=== PATIENT | female | born 1975 | race Caucasian/White ===

== ENCOUNTER → 2019-06-13 09:32 | Outpatient (CLI) | payer OTHER, SELFPAY ==
[2019-06-13 10:37] LABS: Absolute Lymphocyte Count 2.39 X10^3/uL (0.83-4.51); Absolute Neutrophil Count 4.4 X10^3/uL (2.0-7.7); Basophil# 0.04 X10^3/uL; Basophil% 0.5 % (0-1); Eosinophil# 0.08 X10^3/uL; Eosinophils% 1.1 % (0-5); Hematocrit 35.9 % (37-47); Hemoglobin 10.5 g/dL (12.0-15.0); Lymphocyte # 2.39 X10^3/ul (4.0); Lymphocyte % 32.7 % (19-41); Mean Corp Hgb Conc 29.2 g/dL (32-36); Mean Corpuscular Hgb 19.7 pg (27.0-32.0); Mean Corpuscular Volume 67.2 fL (81-99); Mean Platelet Vol. 11.2 fl (6.2-12.0); Monocyte# 0.37 X10^3/uL; Monocyte% 5.1 % (0-10); NRBC Flagged by Analyzer 0 % (0-5); Neutrophil # 4.42 X10^3/uL (2.7-7.7); Neutrophil % 60.3 % (47-70); Platelet Count 299 K/mm3 (150-450); RBC Distribution Width CV 18.8 % (11.6-14.6); RBC Distribution Width SD 43.6 fl (35.1-43.9); Red Blood Count 5.34 M/mm3 (4.2-5.4); White Blood Count 7.3 K/mm3 (4.4-11.0)
[2019-06-13 10:54] LABS: ALB/GLOB Ratio 0.9 RATIO (0.9-2.4); AST(SGOT) 15 U/L (15-37); Alanine Aminotransfer ALT/SGPT 24 U/L (13-56); Albumin, Serum 3.5 g/dL (3.2-5.0); Alkaline Phosphatase 82 U/L (45-117); Anion Gap 4 (5-15); BUN 11 mg/dL (7-18); BUN/Creat Ratio 16.3 RATIO (10-20); Calcium,Total 8.3 mg/dL (8.5-10.1); Chloride 109 mmol/L (98-107); Cholesterol 191 mg/dL (200); Creatinine, Serum 0.68 mg/dL (0.55-1.02); EST Glomerular Filtration Rate 101 mL/min (>60); Est Glom Filt Rate - Afr Amer 122 mL/min (>60); Globulin 3.9 g/dL (2.2-4.2); Glucose 90 mg/dL (74-106); High Density Lipoprotein 33 mg/dL; Protein, Total 7.4 g/dL (6.4-8.2); Sodium Level 139 mmol/L (136-145); Triglycerides 66 mg/dL; Very Low Density Lipoprotein 13 mg/dL (5-40)
[2019-06-13 10:59] LABS: Hemoglobin A1c 5.6 % (4.2-6.3)
== END ==
PROVIDERS: PCP Family Medicine; Referring Provider Family Medicine; Visit Provider Family Medicine
DX: Z00.00 Encounter for general adult medical examination without abnormal findings (principal); E66.9 Obesity, unspecified
CPT/HCPCS: 36415; 80053; 80061; 83036; 85025

== ENCOUNTER → 2019-09-03 13:19 | Outpatient (CLI) | payer OTHER, SELFPAY ==
[2019-09-08 04:38] LABS: HPV APTIMA, High Risk Negative (Negative)
[2019-09-11 00:31] LABS: HPV Reflexed? YES, CHARGE PATIENT
== END ==
PROVIDERS: PCP Family Medicine; Referring Provider Obstetrics & Gynecology; Visit Provider Obstetrics & Gynecology
DX: Z12.4 Encounter for screening for malignant neoplasm of cervix (principal)
CPT/HCPCS: 87624; 88175; G0145

== ENCOUNTER → 2019-09-22 17:00 | Outpatient (CLI) | payer OTHER, SELFPAY ==
--- NOTE | 2019-09-22 17:00 | BI_ITS ---
MAMMOGRAPHY - BILATERAL SCREENING REASON FOR EXAM: Female, 44 years old. Routine annual screening examination. PERTINENT HISTORY: Non-contributory. History of prior bilateral breast reduction surgery. TECHNIQUE: Digital bilateral breast bettie (3D mammographic acquisition) in the CC and MLO projections. 2-D mediolateral oblique (MLO) and craniocaudad (CC) views of both breasts were obtained. CAD: Full Field Digital Mammography with Computer Added Detection was performed. COMPARISON: None. Baseline examination. FINDINGS: Breast Composition: The breasts are heterogeneously dense, which may obscure small masses. There are no dominant masses or suspicious calcifications. Benign-appearing bilateral axillary lymph nodes. No other significant abnormalities are identified. BI/SCREEN MAMM (CAD) W/BETTIE BILAT IMPRESSION: Negative screening mammogram. Yearly followup mammogram recommended. (A) ASSESSMENT CATEGORY: BIRADS Category 2: Benign. A letter regarding these results will be sent to the patient by the facility within 30 days. Approximately 10% of breast cancers are not detected by mammography. A normal mammogram should not delay biopsy of a clinically suspicious abnormality. [id number] Electronically Signed: Peewee Sibley, at 9:31 EDT , Service support ,
== END ==
PROVIDERS: PCP Family Medicine; Referring Provider Obstetrics & Gynecology; Visit Provider Obstetrics & Gynecology
DX: Z12.31 Encounter for screening mammogram for malignant neoplasm of breast (principal)
CPT/HCPCS: 77063; 77067

== ENCOUNTER → 2020-05-16 16:56 | Outpatient (CLI) | payer OTHER, SELFPAY ==
[2020-05-18 15:35] LABS: Cancer Antigen 125 18.6 U/mL (0.0-38.1)
== END ==
PROVIDERS: PCP Family Medicine; Visit Provider Obstetrics & Gynecology
DX: N83.209 Unspecified ovarian cyst, unspecified side (principal)
CPT/HCPCS: 36415; 86304

== ENCOUNTER 2020-06-06 06:46 | Day surgery (SDC) | payer OTHER, SELFPAY ==
[2020-06-02 16:51] LABS: Hematocrit 44.5 % (37-47); Hemoglobin 14.7 g/dL (12.0-15.0); Mean Corpuscular Hgb 27.9 pg (27.0-32.0); Mean Corpuscular Volume 84.4 fL (81-99); Mean Platelet Vol. 11.4 fl (6.2-12.0); Platelet Count 262 K/mm3 (150-450); RBC Distribution Width CV 13.3 % (11.6-14.6); RBC Distribution Width SD 41.1 fl (35.1-43.9); Red Blood Count 5.27 M/mm3 (4.2-5.4); White Blood Count 10.2 K/mm3 (4.4-11.0)
[2020-06-02 17:02] LABS: Prothrombin Time (Protime)PT. 12.5 SECONDS (11.7-14.9)
[2020-06-02 17:31] LABS: Internal QC Validated? YES +Cl - CLEAR BKGD; Pregnancy, Serum, hCG Quali. NEGATIVE Negative
[2020-06-02 17:34] LABS: Creatinine, Serum 0.63 mg/dL (0.55-1.02); EST Glomerular Filtration Rate 109 mL/min (>60); Est Glom Filt Rate - Afr Amer 132 mL/min (>60)
--- NOTE | 2020-06-05 19:44 | HP.PCM_ITS ---
History and Physical Date of Admission: 06/06/20 Surgical History and Physical Freda Urias, a 45 year old female 0 0 0 0 0, presents for RAVH/BSO on May at 7:30. -- Bilateral Ovarian Calcifications; Menorrhagia -- Flow is heavy, has varied between heavy and spotting. U/S to check for appropriateness of abblation showed calcifications in both ovaries. Given this, she desires we proceed with the above surgery. MEDICATIONS HISTORY: Patient is also takin. ibuprofen 200 mg capsule, 2 tabs po PRN ALLERGIES: NKDA Infections - Bronchitis, Chicken pox and Shingles Illnesses - PCOS Accidents - None Hospitalizations - see surgery Kidney Stone 08/2017; Review of Systems: GENERAL - Denies fever, or chills SKIN - Denies skin changes EYES - Denies visual changes EARS - Denies difficulty hearing NOSE - Denies nasal congestion or bleeding MOUTH - Denies sore throat or difficulty swallowing NECK - Denies pain or swelling RESPIRATORY - Denies shortness of breath or wheezing CARDIOVASCULAR - Denies palpitations or chest pain GASTROINTESTINAL - Denies nausea, vomiting, diarrhea, constipation GENITOURINARY - Denies dysuria, frequency of urination, incontinence of urine MUSCULOSKELETAL - Denies joint or muscle pain NEUROLOGICAL - Denies localized numbness or weakness PSYCHIATRIC - Denies depression or anxiety ENDOCRINE - Denies heat or cold intolerance, weight loss or gain HEMATO-IMMUNOLOGIC - Denies excesive bleeding with cuts SOCIAL HISTORY: Alcohol Use - socially Smoking - used to smoke but quit Diet - no special diet Lifestyle - Exercise - minimal Seat Belt Use - always Employer - [employer] 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 Paternal history of Hypertension. MENSTRUAL HISTORY: LMP Known?- DefiniteAmount/Duration - 7 days, Regularity - Regular, Frequency - variable days, LMP - 05/07/20, Age Onset Menarche - 16 PAST PREGNANCIES: Total Pregnancies - 0; Full Term Pregnancies - 0; Premature - 0; Abortions, Induced - 0; Abortions, Spontaneous - 0; Ectopics - 0; Multiple Births - 0; Living Children - 0 SURGICAL HISTORY: 1. 02/19/1989 Rt knee surgery 2. Conization x 2 1992, 2009 3. T and A, in 1982 4. Breast reduction 01/2012 5. Lithotripsy Stone Right Kidney [facility] 08/2017 PHYSICAL EXAM BP- 152/98 Sitting, Right arm, large cuff Weight- 273.73365 lbs Height- 67.75 inch BMI:41.90 CONSTITUTIONAL - NAD, well nourished, and well developed SKIN - No rash, lesions, or ulcers HEENT - Normocephalic, PERRLA, EOMI NECK - No nodes, no nuchal rigidity and thyroid normal size and texture LYMPH NODES - Palpation of lymph nodes in neck and groins within normal limits LUNGS - CTA x2 without wheezes, crackles or rales CARDIAC - Regular rate and rhythm without rubs, murmurs, or gallops BREAST - No dominant masses, no tenderness, no axillary adenopathy, no nipple discharge, no skin changes ABDOMEN - Without hepatosplenomegaly, distention, masses, rebound, or guarding; normal bowel sounds; no hernias EXTREMITIES - No edema or calf tenderness NEUROLOGICAL - Cranial nerves II-XII grossly intact PSYCHIATRIC - A and O to time, place, person, mood and affect External Genitial Vagina - non-tender without lesions Urethra/Urethral Meatus - non-tender Bladder - non-tender Vagina - vaginal akins are pink and moist without loss of rugae and no evidence of atropy Cervix - without cervical motion tenderness and has normal size and features without evident lesions Uterus - 5-6 cm in size, mobile and nontender Adnexa - clear without massess or tenderness ASSESSMENT/PLAN: 1. Abnormal Findings On Diagnostic Imaging Of Other Specified Body Structures, Other Noninflammatory Disorders Of Ovary, Fallopian Tube And Broad Ligament and Premenopause Menorrhagia Reviewed pelvic u/s results and uncertain etiology of bilateral ovarian calcifications. CA-125 normal. Possible causes are benign or malignant ovaries, dermoid cyst, or normal ovarian tissue. Given this will not proceed with ablation but rather proceed with RAVH/BSO. Discussed RBAs of procedure including needing to use HRT for an indefinite time. All questions answered.
[2020-06-06] VITALS (12 sets, daily range): BP systolic 140–166; BP diastolic 75–101; PULSE 78–109; RESP 16–18; TEMP 36.3–36.9; O2SAT 92–97; BMI 39.9
[2020-06-06 07:30] LABS: Internal QC Validated? YES +Cl - CLEAR BKGD; Pregnancy, Urine Negative Negative
[2020-06-06] MEDS: Lactated Ringers 1,000 ML 100 ML IV ×2 (07:33→09:30)
[2020-06-06] MEDS: Cefotetan 2 GM in 0.9% NS 100 ML IV (08:06)
--- NOTE | 2020-06-06 08:15 | HYST_PTH ---
PATIENT: AVTAR GRAY LOC: [facility] [place] U#:[id number] AGE/SX: 45/F ROOM: RE06/06/[address]: Dr. Rodger Coy MD : [id number] BED: DIS: 06/07/2020 SPEC #: [id number] RECD: 06/06/20 11:58 STATUS: SHYLA REJoselyn #: [id number] JEFF: 06/06/20 08:[address]: Rodger Coy DEPT: SURGICAL PATHOLOGY RECD BY: Kristin Theodore ENTERED: 06/06/20 13:48 SP TYPE: HYSTERECT OTHR DR: Dr. Alfonso Ventura, DO Tissues: Uterus, NOS Procedures: Surgery Specimen Level V HEADER OPERATION: Robotic assisted vaginal hysterectomy, bilateral salpingo-oophorectomy PRE-OP DIAGNOSIS: Menorrhagia, ovarian calcifications TISSUE SUBMITTED: Uterus, cervix, bilateral fallopian tubes, bilateral ovaries MICROSCOPIC DIAGNOSIS Uterus, hysterectomy: Cervix - squamous metaplasia, nabothian cysts and mild chronic inflammation. Endometrium - secretory endometrium. Myometrium - adenomyosis. Right ovary - cystadenofibroma. Left ovary - cystadenofibroma. Corpus luteal cyst. Left fallopian tube - no pathologic change. AM:angelita 06/07/2020 MICROSCOPIC DESCRIPTION Slides are reviewed. GROSS DESCRIPTION Received in fixative is one container labeled with the patient's name and designated uterus. The specimen consists of a uterus with attached cervix, detached right ovary with adherent indistinct possible fallopian tube and attached left ovary and fallopian tube. The uterus with cervix measures 10 x 6 x 5.7 cm and weighs 172 gm. The endocervical canal measures 3.5 cm in length and is grossly unremarkable. The elongated endometrial cavity measures 5 x 2.5 cm. The velvety, light lopes endometrium measures up to 0.4 cm in thickness. The myometrium measures 3 cm in average thickness and is free of mass lesions. The cystic pink-lopes right ovary measures 4 x 3.5 x 2 cm. Serial sections reveal multiple cysts containing clear fluid and ranging in size from 0.1 to 1 cm. No distinct right fallopian tube is identified. The left fallopian tube measures 8.5 cm in length and 0.5 cm in average diameter. The fimbrial end of the fallopian tube is focally adherent to the smooth, glistening cystic ovary. This ovary measures 4.8 x 3.5 x 3 cm. Serial sections of the left ovary likewise reveal multiple cysts containing clear fluid and the cysts range in size from 0.1 to 1.5 cm in greatest dimension. Cso sections are submitted in ten cassettes as follows: 1 - anterior cervix, 2 - posterior cervix, 3 & 4 - anterior uterine wall, 5 & 6 - posterior uterine wall, 7 - right ovary and paraovarian tissue, 8 & 9 - left ovary, 10 - left ovarian cyst and left fallopian tube. / AM:angelita 06/06/20 TC:1 CPT: 88778
--- NOTE | 2020-06-06 08:17 | OP.PCM_ITS ---
Report of Operation Date of Procedure: 06/06/20 Pre-Operative Diagnosis: Menorrhagia, Ovarian Calcifications Post-Operative Diagnosis: Menorrhagia, Ovarian Calcifications, Dense Adhesions Surgery/Procedure Performed:: Robotic Assisted Vaginal Hysterectomy and Bilateral Salpingo-Oophorectomy, Lysis of Adhesions Description of Surgical Findings:: 12 cm uterus with normal-appearing left fallopian tube and an obliterated right fallopian tube. Possible hydrosalpinx at the right cornua. Dense adhesions between the ovaries and pelvic sidewalls into the pelvis and onto the posterior uterus. Dense adhesions of the rectosigmoid to the posterior cervix. Ovaries were slightly enlarged but appeared essentially normal. Possible endometriosis present. mirror inspector: Esmer De La Garza Type of Anesthesia:: General - Endotracheal Anesthesiologist: Kayla Black Specimen's removed: Uterus and bilateral fallopian tubes and ovaries Drains: Resendez to straight drain Estimated Blood Loss (mL): 200 cc Fluids Replaced: Crystalloid Description of Procedure: Surgeon: Rodger Coy MD, FACOG Indication: This is a 45 year old patient who has been having problems with menorrhagia. On recent ultrasound she was also noted to have bilateral calcified ovaries. CA-125 was normal. The patient has been counseled regarding the risks, benefits and alternatives of this procedure including the possibility of bleeding, infection, and injury to surrounding structures such as bowel bladder and all questions were answered. She understands that if BSO is done that she will need to be on HRT for an indefinite period of time. Procedure: Pt taken to the operating room where, after induction of general anesthesia, the patient was prepped and draped in the usual sterile fashion and placed on a non-slip Huggy-u-vac device. Trendelenburg test was satisfactory. Bladder was drained of urine with a Resendez catheter which was left in place. Anterior cervix grasped and cervix was dilated to about 3-4 mm. Uterus sounded to 11 cms. 0-Vicryl suture was placed at the 3:00 and 9:00 position of the cervix. A small Advincula Executive Search Consultant Uterine Manipulator was then placed in the uterus and attention was turned to the laparoscopic portion of the procedure. Ropivocaine 0.5% was injected approximately 2-3 cm superior to the umbilicus and an 8 mm robotic camera port was introduced directly with intraperitoneal placement confirmed with CO2 insufflation. 8 mm robotic side ports were introduced under direct visualization approximately 11 cm lateral and 2 cm inferior to the umbilical port. A 5 mm left upper quadrant port was introduced and airseal insufflation with CO2 was started. The above findings were noted. Robot was docked without difficulty and attention turned to the robotic portion of the procedure. Approximately 30 cc of Ropivicaine was used. Bilateral infundibulopelvic ligaments were ligated with 35 aldana bipolar coagulation to the level of the round ligament after taking down dense adhesions between the ovaries and pelvic sidewalls. This was done with both blunt and sharp dissection as well as monopolar or bipolar cautery were safe. Bowel was also bluntly and sharply dissected from the posterior aspect of the cervix. A dhesiolysis added approximately 45 minutes to the case. The posterior aspect of the cervix was identified and then opened for about 1 cm using 25 watt monopolar cautery. Bladder flap was opened and divided to the level of the round ligaments using monopolar cautery. Progressive bites were then ligated on each side of the cervix with 35 aldana bipolar cautery to the uterine arteries. The anterior vaginal mucosa was entered and cervix circumscribed with monopolar cautery. Uterus and attached tubes and ovaries were removed through the vagina. Vaginal cuff was closed first with 0-Vicryl Erni stitches placed at each angle followed by closure of the mid-cuff with 0- Monocryl V-lock suture in two layers. Pelvis was copiously irrigated with saline and the right ureter was noted to peristalse. Abner was placed across the pedicles to help with postoperative hemostasis due to oozing from the adhesiolysis. Robot was undocked and trocars were removed with as much gas as possible. Incisions were closed with 4-0 Monocryl subcuticular sutures and incisions covered with steri-strips. The patient tolerated the procedure well and was taken to the recovery room in satisfactory condition. Sponge, instruments and needle counts were all correct. There were no apparent complications of the surgery. Cefotan 2 gms IV was given prior to the procedure. Estimated Blood Loss: 200 cc Specimen to Pathology: Uterus and bilateral fallopian tubes and ovaries Grafts/Implants Used: None - Complications None - Admit VTE Documentation VTE Present on Admission: Yes VTE Mechan Device Prophylaxis: SCD's VTE Pharm Prophylaxis ordered?: Yes
--- NOTE | 2020-06-06 08:23 | DCINST_ITS ---
Discharge Diet: No Restrictions Discharge Activity: Return to Normal Activity, May Not Drive - while taking narcotic pain medications., May Shower, May Take a Tub Bath May resume sexual activity in: 6-8 weeks Call your doctor if your incision/area has: Continuous Slow Oozing, Sudden Inc reased Bleeding, Increased Pain/ Swelling, Increased Redness, Foul Smelling Discharge Call your doctor if you observe: Fever of 101 or Higher, Inability to urinate, Inability to have a bowel movement, Using more than one pad per hour Allergies/Adverse Reactions: Allergies No Known Allergies Allergy (Verified 06/06/20 07:02) Medications to take at Discharge Ferrous Sulfate 325 mg PO DAILY 05/30/20 Ibuprofen [Advil] 200 mg PO Q6H PRN PRN 05/30/20 Docusate Sodium [Colace] 100 mg PO BID PRN PRN #60 cap 06/06/20 Estradiol 2 mg PO DAILY #100 tab 06/06/20 Oxycodone [Oxyir] 5 mg PO Q6H PRN PRN 7 Days #10 tablet 06/06/20 The following prescriptions were given: Docusate Sodium [Colace] 100 mg PO BID PRN PRN #60 cap PRN Reason: Constipation Transmission Status: Pending to [facility] Estradiol 2 mg PO DAILY #100 tab Transmission Status: Pending to [facility] Oxycodone [Oxyir] 5 mg PO Q6H PRN PRN 7 Days #10 tablet PRN Reason: Pain Score 6-10 Transmission Status: Sent to [facility] Primary Care Physician: Alfonso Ventura DO [Primary Care Provider] - Test Results: Test results from this visit will be discussed in further detail at your follow- up appointment, if applicable. Please Follow Up With: Rodger Coy MD When: 2 to 3 weeks
[2020-06-06] MEDS: Lubricating Jelly 60 GM Tube 30 GM TOPICAL (08:35)
[2020-06-06] MEDS: Ropivacaine 0.5% 30 ML Vial (08:45)
[2020-06-06] MEDS: Lactated Ringers 1,000 ML 150 ML IV ×2 (14:38→20:39)
[2020-06-06] MEDS: Docusate Sodium 100 MG Capsule PO ×2 (14:40→20:43)
[2020-06-06] MEDS: Acetaminophen 500 MG Tablet 1000 MG PO ×2 (14:40→18:46)
[2020-06-06] MEDS: Ketorolac 30 MG/ML Syringe IV ×2 (14:40→18:46)
[2020-06-06] MEDS: 0.9% Saline Lock 10 ML Syringe IV ×2 (14:46→20:49)
[2020-06-06] MEDS: Enoxaparin 40 MG/0.4 ML Syringe SC (18:47)
[2020-06-07] MEDS: Ketorolac 30 MG/ML Syringe IV ×2 (00:47→05:57)
[2020-06-07] MEDS: Acetaminophen 500 MG Tablet 1000 MG PO ×2 (00:47→05:56)
[2020-06-07 00:51] VITALS: BP 163/98; PULSE 105; RESP 18; TEMP 36.7; O2SAT 95
[2020-06-07] MEDS: Lactated Ringers 1,000 ML 150 ML IV (02:37)
[2020-06-07 05:53] VITALS: BP 166/102; PULSE 102; RESP 18; TEMP 36.8; O2SAT 94
[2020-06-07 06:40] LABS: Hemoglobin 13.8 g/dL (12.0-15.0); Mean Corp Hgb Conc 33.7 g/dL (32-36); Mean Corpuscular Hgb 28.5 pg (27.0-32.0); Mean Corpuscular Volume 84.5 fL (81-99); Platelet Count 249 K/mm3 (150-450); RBC Distribution Width SD 39.8 fl (35.1-43.9); Red Blood Count 4.85 M/mm3 (4.2-5.4); White Blood Count 14.2 K/mm3 (4.4-11.0)
[2020-06-07 07:07] LABS: Creatinine, Serum 0.67 mg/dL (0.55-1.02); EST Glomerular Filtration Rate 102 mL/min (>60); Est Glom Filt Rate - Afr Amer 123 mL/min (>60); Estimated Creatinine Clearance 111.98 ml/min
--- NOTE | 2020-06-07 08:22 | PN.OBGYN_ITS ---
Subjective: Patient without complaints. Tolerating diet well. Positive flatus. Reports minimal vaginal bleeding. Objective: Wounds are clean, dry, intact. Good urine output. Hemoglobin and creatinine okay. - Physical Exam Vitals/I&O's: Vital Signs Temp Pulse Resp BP Pulse Ox 98.2 F 102 H 18 166/102 H 94 06/07/20 05:53 06/07/20 05:53 06/07/20 05:53 06/07/20 05:53 06/07/20 05:53 Oxygen Delivery Method Room Air Weight: 270 lb 4.587 oz Body Mass Index (BMI) 39.9 Intake and Output for Last 24 Hours 06/05/20 06/06/20 06/07/20 23:59 23:59 23:59 Intake Total 3002.5 / 3602.5 1495 / 1495 Output Total 400 / 1950 3400 / 3400 Balance 2602.5 / 1652.5 -1905 / -1905 Laboratory Results 06/07/20 06:14: Creatinine 0.67, Estim Creat Clear Calc 111.98, Est GFR (MDRD) Af Amer 123, Est GFR (MDRD) Non-Af 102 06/07/20 06:14: WBC 14.2 H, RBC 4.85, Hgb 13.8, Hct 41.0, MCV 84.5, MCH 28.5, MCHC 33.7, RDW Std Deviation 39.8, RDW Coeff of Ning 13.0, Plt Count 249, MPV 11.0 Current Medications Acetaminophen (Acetaminophen 500 Mg Tablet) 1,000 mg PO Q6 [facility] Last Admin: 06/07/20 05:56 Dose: 1,000 mg Documented by: Docusate Sodium (Docusate Sodium 100 Mg Capsule) 100 mg PO BID [facility] Last Admin: 06/06/20 20:43 Dose: 100 mg Documented by: Lactated Ringer's () 1,000 mls @ 150 mls/hr IV .Q6H40M [facility] Stop: 06/07/20 13:19 Last Admin: 06/07/20 02:37 Dose: 150 mls/hr Documented by: Ketorolac Tromethamine (Ketorolac 30 Mg/Ml Syringe) 30 mg IV Q6 [facility] Stop: 06/07/20 18:01 Last Admin: 06/07/20 05:57 Dose: 30 mg Documented by: Magnesium Chloride (Magnesium Chloride 64 Mg Delay Rel.Tablet) 128 mg PO DAILY PRN PRN PRN Reason: Constipation Nutritional Formula (Lactose Free) (Ensure Enlive 120 Ml Liquid) 120 ml PO TIDCM ALVIN Last Admin: 06/06/20 18:45 Dose: 120 ml Documented by: Ondansetron HCl (Ondansetron Odt 4 Mg Tablet) 4 mg PO Q6H PRN PRN PRN Reason: NAUSEA Sodium Chloride (0.9% Saline Lock 10 Ml Syringe) 10 - 40 ml IV UD PRN PRN Reason: SALINE FLUSH Last Admin: 06/06/20 20:49 Dose: 10 ml Documented by: Medical Necessity - Tobacco Use Smoking Status: Former smoker Tobacco Use: Non-smoker Assessment/Plan Doing well postoperative day #1 status post robotic assisted vaginal hysterectomy and bilateral salpingo-oophorectomy. Will discharge to home with routine instructions.
[2020-06-07] MEDS: Docusate Sodium 100 MG Capsule PO (09:08)
[2020-06-07 09:12] VITALS: BP 144/98; PULSE 96; RESP 18; TEMP 36.6; O2SAT 96
[2020-06-07 10:16] VITALS: O2SAT 96
--- NOTE | 2020-06-07 11:07 | PHA.DC.MC ---
Pharmacy Service has performed discharge medication reconciliation and counseling for this patient. 1. DOCUSATE 100MG PO BID PRN CONSTIPATION 2. ESTRADIOL 2MG PO DAILY 3. OXYCODONE 5MG PO Q6H PRN PAIN 6-10 The patient's discharge medication list was reviewed for discrepancies and discrepancies were resolved. Home Medications Ferrous Sulfate 325 mg PO DAILY 05/30/20 Ibuprofen [Advil] 200 mg PO Q6H PRN PRN 05/30/20 Docusate Sodium [Colace] 100 mg PO BID PRN PRN #60 cap 06/06/20 Estradiol 2 mg PO DAILY #100 tab 06/06/20 Oxycodone [Oxyir] 5 mg PO Q6H PRN PRN 7 Days #10 tab 06/06/20 The patient was counseled on the following discharge medications and changes in medications for homegoing were reviewed. The Reason for Use, instructions for use, and potential side effects were reviewed for all new medications. The patient's questions regarding all of their medications were answered. The patient was able to verbally demonstrate an understanding of their discharge medications. Patient counseled by student services advisor, Princess.
[2020-06-07 13:28] VITALS: BP 154/110; PULSE 101; RESP 18; TEMP 36.5; O2SAT 96
--- NOTE | 2020-06-07 13:29 | NURSING ---
PT STATES BP HAS BEEN HIGH - HAS F/U APPOINTMENT W/PCP TO EVALUATE SAME.
== END 2020-06-07 14:02 | disposition home or self-care (01) ==
LOC: SDC 06:46 → AC 06:47 → MS3 06-07 12:15
PROVIDERS: Anesthesiology; PCP Family Medicine; Referring Provider Obstetrics & Gynecology; Visit Provider Obstetrics & Gynecology
PROC: 0UT94ZZ Resection of Uterus, Percutaneous Endoscopic Approach (ICD-10-PCS; CPT 58552; principal; 2020-06-06 07:55)
DX: D27.1 Benign neoplasm of left ovary (principal); D27.0 Benign neoplasm of right ovary; N92.0 Excessive and frequent menstruation with regular cycle; K66.0 Peritoneal adhesions (postprocedural) (postinfection); Z79.1 Long term (current) use of non-steroidal anti-inflammatories (NSAID); Z79.899 Other long term (current) drug therapy; Z82.49 Family history of ischemic heart disease and other diseases of the circulatory system; Z83.3 Family history of diabetes mellitus; Z87.442 Personal history of urinary calculi; Z87.891 Personal history of nicotine dependence; E28.2 Polycystic ovarian syndrome; N80.0 Endometriosis of uterus; N88.8 Other specified noninflammatory disorders of cervix uteri; N83.12 Corpus luteum cyst of left ovary
CPT/HCPCS: 00840; 58552; S2900; 36415; 81025; 82565; 84703; 85027; 85610; 85730; 86850; 86900; 86901; 87426; 88307; 94762; C9803; J7120; A4216; J0330; J2405

== ENCOUNTER → 2020-07-04 12:48 | Outpatient (CLI) | payer OTHER, SELFPAY ==
[2020-06-06 13:19] VITALS: BMI 39.9
--- NOTE | 2020-07-04 12:49 | ECHOD_ITS ---
Reason For Study: New onset loud systolic murmur Procedure This was a 2D Doppler, Color Flow transthoracic echocardiogram. Contrast injection was performed. Exam performed in department. Left Ventricle Normal LV size. Moderate concentric left ventricular hypertrophy. Left ventricular systolic function is normal. The estimated ejection fraction is 55 %. No regional wall motion abnormalities noted. Right Ventricle Normal RV size. Normal systolic function. Atria The left atrium is moderately enlarged. Normal right atrium. Mitral Valve Posterior leaflet mitral valve prolapse. Moderate (2+) eccentric mitral valve insufficiency. Tricuspid Valve Normal tricuspid valve. Mild (1+) tricuspid valve insufficiency. Pulmonary artery systolic pressure is 30 mmHg. Aortic Valve Normal aortic valve. Trisinus/trileaflet aortic valve. Pulmonic Valve Normal pulmonic valve. Mild (1+) pulmonic valve insufficiency. Great Vessels Normal aortic root. The pulmonary artery is normal size. Normal inferior vena cava. Pericardium/Pleural No pericardial effusion. Medication Diluted definity 4ml given slow IV push to enhance endocardial definition. MMode/2D Measurements & Calculations LVIDd: 5.7 cm IVSd: 1.5 cm Ao root diam: 3.5 cm LVIDs: 3.2 cm LVPWd: 1.5 cm RVDd: 3.7 cm FS: 44.0 % LAV(MOD-bp): 117.1 ml LVAd ap4: 42.7 cm2 SV(MOD-sp4): 90.4 ml LAV(MOD-bp) Indexed: 50.4 ml/m2 EDV(MOD-sp4): 165.1 ml LAV(MOD-sp2): 112.2 ml EDV(sp4-el): 169.2 ml LAV(MOD-sp4): 114.8 ml LVAs ap4: 26.4 cm2 ESV(MOD-sp4): 74.7 ml ESV(sp4-el): 76.6 ml EF(MOD-sp4): 54.7 % EF(sp4-el): 54.7 % SV(sp4-el): 92.6 ml LA A4 area: 30.1 cm2 LA dimension(2D): 4.6 cm RA A4 area: 13.9 cm2 Doppler Measurements & Calculations MV E max mark: 105.7 cm/sec Lat Peak E' Mark: 15.9 cm/sec Med Peak E' Mark: 6.8 cm/sec MV A max mark: 78.1 cm/sec E/E' lat: 6.7 E/E' med: 15.4 MV E/A: 1.4 Ao V2 max: 159.6 cm/sec LV V1 max: 108.3 cm/sec PA V2 max: 96.6 cm/sec Ao max P.2 mmHg LV V1 max P.7 mmHg Ao V2 mean: 108.7 cm/sec Ao mean P.3 mmHg Ao V2 VTI: 26.4 cm TR max mark: 254.7 cm/sec TR max P.9 mmHg Interpretation Summary Normal LV size. Left ventricular systolic function is normal. The estimated ejection fraction is 55 %. Posterior leaflet mitral valve prolapse. Moderate (2+) eccentric mitral valve insufficiency. Moderate concentric left ventricular hypertrophy. The left atrium is moderately enlarged. Ordering Physician: Alfonso Ventura Referring Physician: Alfonso Ventura Performed By: Jennifer Simons, CRYSTAL, RVT
== END ==
PROVIDERS: PCP Family Medicine; Referring Provider Family Medicine; Visit Provider Family Medicine
DX: R01.1 Cardiac murmur, unspecified (principal)
CPT/HCPCS: 93306; Q9957; A4216; C8929

== ENCOUNTER 2020-07-15 11:42 | Outpatient (RCR) | payer OTHER, SELFPAY ==
[2020-06-06 13:19] VITALS: BMI 39.9
== END 2020-09-27 23:59 ==
LOC: IMMUN 11:42
PROVIDERS: PCP Family Medicine; Visit Provider Family Medicine
DX: Z23 Encounter for immunization (principal)
CPT/HCPCS: 0001A; 0002A; 91300

== ENCOUNTER 2020-12-05 02:09 | Emergency (ER) | payer OTHER, SELFPAY ==
[2020-06-06 13:19] VITALS: BMI 39.9
[2020-12-05 02:11] VITALS: BP 160/90; PULSE 122; RESP 18; TEMP 37.3; O2SAT 95; BMI 41.1
[2020-12-05 03:17] VITALS: BP 160/90; PULSE 122; RESP 18; TEMP 37.3; O2SAT 95
--- NOTE | 2020-12-05 03:18 | EX.ED.DYSGE1 ---
HPI History of Present Illness Chief Complaint: Fever Narrative Narrative: 45-year-old female presenting with fever with T-max of 102.8 from home. She states has had both of her Pfizer vaccines. Last dose was in July. She had no history of Covid prior to this. She denies chest pain, palpitations, shortness of breath. She states she may have a mild cough which is chronic. Denies urinary symptoms, vaginal symptoms, GI symptoms. PFSH PFS Medical History Hypertension Kidney calculi Mitral valve disorder Home Medications estradiol 2 mg PO DAILY #100 tab 06/06/20 [Rx Last Taken Unknown] lisinopril-hydrochlorothiazide 1 tab PO DAILY 12/05/20 [History Last Taken Unknown] Allergy/AdvReac Type Severity Reaction Status Date / Time No Known Allergies Allergy Verified 06/06/20 07:02 Surgical History H/O: hysterectomy Social History Smoking Status: Former smoker ROS ROS ED Constitutional Constitutional ED: Reports chills and fever(s) Eyes Eyes: Denies blurry vision or diplopia ENT ENT ED: Denies rhinorrhea or sore throat Cardiovascular Cardiovascular: Denies chest pain or palpitations Respiratory/Chest Respiratory/Chest: Denies cough or dyspnea Gastrointestinal Gastrointestinal: Denies abdominal pain, constipation, diarrhea, nausea or vomiting Genitourinary Genitourinary ED: Denies dysuria or hematuria Musculoskeletal Musculoskeletal: Reports myalgias; Denies arthralgias or neck pain Neurologic Neurologic: Reports headache(s); Denies paresthesias or weakness EXAM Physical Exam Const Vital Signs: 12/05/20 02:11 12/05/20 03:17 Temperature 99.1 F 99.1 F Temperature Source Oral Oral Pulse Rate 122 H 122 H Respiratory Rate 18 18 Blood Pressure 160/90 H 160/90 H Blood Pressure Mean 113 113 Pulse Ox 95 95 Oxygen Delivery Method Room Air Room Air Positive well nourished General Appearance ED: NAD HEENT Reports moist mucous membranes Negative for trauma Eyes PERRL and EOMs intact bilaterally Chest Wall inspection of chest normal and palpation of chest normal Resp normal respiratory effort and clear to auscultation bilaterally Cardio regular rhythm Rate: tachycardic Extremity normal to inspection General Extremety ED: Negative for tenderness Neuro oriented x3, CN's II-XII intact bilaterally and no sensory deficits noted Sensorium / Orientation: alert Motor Exam: strength 5/5 throughout Psych mental status grossly normal Skin no rashes or lesions noted and no wounds MDM MDM MDM Narrative Medical decision making narrative: Patient presented with a fever from home. She states this is been going on for about 24 hours. She does admit to a mild headache but denies any neck pain. Patient denies significant change in her cough which is chronic. She denies GI complaints, complaints, rashes. She states currently she feels much improved and now that her fever has broken. I did offer the patient blood work, imaging, Covid testing however she does decline this and states she just wants to be tested for COVID-19. We did also discuss testing for RSV or influenza and she is not interested in this either. Patient will be tested for Covid and discharged home. If she has any new or worsening symptoms she is to return to the ER. Patient stable for discharge at this time. Impression: #1 febrile illness Discharge Plan Triage Chief Complaint: Fever ED Provider: Salvador Ríos Dx/Rx/DC Orders Instructions: ED Fever Control (Adult) Prescriptions: No Action estradiol 2 MG tablet 2 mg PO DAILY Qty: 100 RF: 4 lisinopril-hydrochlorothiazide 10-12.5 mg Tablet 1 tab PO DAILY RF: 0 Primary Care Provider: Alfonso Ventura Referrals: Alfonso Ventura DO [Primary Care Provider] - Disposition Disposition: Home, Self Care
== END 2020-12-05 03:50 | disposition home or self-care (01) ==
LOC: ED 03:50
PROVIDERS: Emergency Provider Student in an Organized Health Care Education/Training Program; PCP Family Medicine
DX: R50.9 Fever, unspecified (principal); I10 Essential (primary) hypertension; Z87.891 Personal history of nicotine dependence; Z87.442 Personal history of urinary calculi
CPT/HCPCS: 87426; 99282

== ENCOUNTER 2020-12-07 21:32 | Emergency (ER) | payer OTHER, SELFPAY ==
[2020-12-07 21:34] VITALS: BP 78/57; PULSE 136; RESP 37; TEMP 36.2; O2SAT 95; BMI 41.1
[2020-12-07 21:38] VITALS: BP 78/57; PULSE 136; RESP 37; TEMP 36.2; O2SAT 95
[2020-12-07 21:44] VITALS: BP 98/60; PULSE 134; RESP 28; O2SAT 99
--- NOTE | 2020-12-07 21:49 | EKG12_ITS ---
Test Reason : CP/COVID Blood Pressure : / mmHG Vent. Rate : 140 BPM Atrial Rate : 140 BPM P-R Int : 140 ms QRS Dur : 106 ms QT Int : 290 ms P-R-T Axes : 067 -84 056 degrees QTc Int : 442 ms AGE AND GENDER SPECIFIC ECG ANALYSIS Atrial Flutter 2:1 block Left axis deviation Abnormal ECG Confirmed by ROGER BORDEN, MOSHE ([id number]), assistant production editor LUKE MCNEAL ([id number]) on 12/12/2020 9:22:59 AM Referred By: DR EDMONDS Confirmed By:MOSHE DURAN MD
--- NOTE | 2020-12-07 21:50 | CM.ED ---
SOCIAL WORK STEMI Alert Responded to STEMI. No family present at this time. SW to remain available for needs. Letitia Barillas, LOCOMOTIVE BOILERMAKER, IMAGE CONSULTANT
[2020-12-07 21:52] VITALS: O2SAT 96
--- NOTE | 2020-12-07 21:52 | HP.PCM.HOS_ITS ---
HPI - General HPI Narrative AVTAR GRAY, is a 45 F with a significant history of hypertension hyperlipidemia who presents to emergency department with a 2-day history of persistent nausea. Associated for symptom is vomiting and muscle aches. On the field EKG was consistent with STEMI. Repeat EKG at emergent department was also consistent with STEMI. [facility] Medical History Hypertension Kidney calculi Mitral valve disorder Home Medications lisinopril-hydrochlorothiazide 1 tab PO DAILY 12/05/20 [History Last Taken Unknown] Allergy/AdvReac Type Severity Reaction Status Date / Time No Known Allergies Allergy Verified 06/06/20 07:02 Family History (Updated 12/07/20 @ 21:[address] Rodrick Tee MD) Other Hypertension Surgical History H/O: hysterectomy Social History Smoking Status: Former smoker ROS ROS Narrative Constitutional: Denies anorexia and change in weight Eyes: Denies blurry vision, change in eye color, change in vision, discharge from eye(s), double vision, erythema, eye pain, loss of vision or other HEENT: Denies abnormal hearing, dysphagia, ear pain, epistaxis, headache(s), hearing loss, nasal congestion, nasal discharge, post nasal drip, sinus pressure, sore throat or other Cardiovascular: Denies chest pain. Denies dyspnea on exertion, orthopnea and paroxysmal nocturnal dyspnea Respiratory/Chest: Denies cough, excessive phlegm production, shortness of breath with exertion and wheezing Gastrointestinal: Reports nausea and vomiting. Denies diarrhea, dyspepsia, hematemesis, hematochezia, loose stools, melena, or other Genitourinary: Denies burning urination, difficulty urinating, dysuria, hematuria, nocturia, urinary frequency, urinary hesitancy, urinary incontinence, urinary urgency or other Musculoskeletal: Reports myalgia Neurologic: Denies abnormal gait, abnormal speech, confusion, disequilibrium, dizziness, focal weakness, headache(s), numbness, paresthesias, seizure-like activity, seizures, syncope, tingling, tremor(s) or other Psychiatric: Denies anxiety, depression, homicidal ideation, suicidal ideation or other Endocrinology: Denies change in body appearance, cold intolerance, excessive sweating, heat intolerance, polydipsia, polyuria or other Hematologic/Lymphatic: Denies anemia, easy bleeding, easy bruising, lymphadeno emmy or other Integumentary: Denies ulcer on buttocks. Allergic/Immunologic: Denies rhinitis, hives, eczema, asthma or other Vital Signs Vital Signs Vital Signs: 12/07/20 21:34 12/07/20 21:38 12/07/20 21:41 Temperature 97.2 F L 97.2 F L Temperature Source Temporal Temporal Pulse Rate 136 H 136 H Respiratory Rate 37 H 37 H Respiratory Effort Normal Non-Labored Respiratory Pattern Normal Blood Pressure 78/57 L 78/57 L Blood Pressure Mean 64 64 Pulse Ox 95 95 Oxygen Delivery Method Room Air Room Air 12/07/20 21:44 Temperature Temperature Source Pulse Rate Respiratory Rate 28 H Respiratory Effort Respiratory Pattern Blood Pressure 98/60 Blood Pressure Mean Pulse Ox Oxygen Delivery Method Weight Weight: 126.47 kg Body Mass Index (BMI) 41.1 Physical Exam Narrative Physical exam: General: Well-nourished, well-developed, no acute distress Head: Normocephalic, atraumatic, no tenderness Eyes: PERRLA, EOMI ENT, no trauma, moist mucous membranes, no rhinorrhea Neck: Nontender, full range of motion, no spinal tenderness, deformities, step- off CVS: Regular rate and rhythm Respiratory no acute distress, clear to auscultation bilaterally, chest wall nontender, no wheezing Abdomen: Soft, nontender, nondistended, normal bowel sounds, no masses : Deferred Back: Nontender, no CVA tenderness, no midline spinal tenderness, deformities, step-offs Extremities: Nontender full range of motion, no trauma Skin: Normal color, no trauma, abrasions Neuro: Alert, oriented, cranial nerves II through XII grossly intact. Psychiatry: Normal mood. Normal affect. Not depressed. Not anxious. Results Lab / Micro Data Result Diagrams: 12/07/20 21:13 12/07/20 21:13 Assessment & Plan Assessment/Plan (1) STEMI (ST elevation myocardial infarction): QUALIFIERS: Involved coronary artery: other inferior wall coronary artery Qualified Code(s): I21.19 - ST elevation (STEMI) myocardial infarction involving other coronary artery of inferior wall PLAN: Chest x-ray image was in independently interpreted. Chest x-ray with no acute findings. High-sensitivity troponin of 3627. EKG reviewed showed inferior wall ST elevation AK. Patient was given aspirin Brilinta and heparin bolus at emergency department. 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 Charges/Coding Multi Select Codes Visit Charges Office Visit/Consults: 72694 ED Visit; Moderate Severity
[2020-12-07] MEDS: Aspirin 81 MG TAB.CHEW 324 MG PO (21:54)
[2020-12-07] MEDS: Heparin Injection (Vial) 5,000 UNIT/ML VIAL 4000 UNIT IV (21:55)
[2020-12-07] MEDS: TICAGRELOR 90 MG TABLET 180 MG PO (21:55)
--- NOTE | 2020-12-07 21:57 | EX.ED.DYSGE1 ---
HPI History of Present Illness Chief Complaint: Weakness Informant: patient Onset/Context/Timing Onset: Days Context: Gradual Onset Timing: Continuous Quality: Nausea Location: Generalized Worsened by: Nothing Relieved by: Nothing Narrative Narrative: Patient presents with nausea that has been getting worse over the past few days. Patient states she felt like she had Covid. Patient was seen for this and had a negative Covid test. Patient states the nausea has been persistent. Patient denies any chest pain or shortness of breath. Patient denies any fevers or chills. Patient denies any neck or back pain. Patient denies any headaches. [facility] Medical History Hypertension Kidney calculi Mitral valve disorder Home Medications lisinopril-hydrochlorothiazide 1 tab PO DAILY 12/05/20 [History Last Taken Unknown] Allergy/AdvReac Type Severity Reaction Status Date / Time No Known Allergies Allergy Verified 06/06/20 07:02 Family History (Updated 12/07/20 @ 21:[address] Rodrick Tee MD) Other Hypertension Surgical History H/O: hysterectomy Social History Smoking Status: Former smoker ROS ROS ED Constitutional Constitutional ED: Denies chills or fever(s) Eyes Eyes: Denies blurry vision or change in vision ENT ENT ED: Denies rhinorrhea or sore throat Cardiovascular Cardiovascular: Denies chest pain or palpitations Respiratory/Chest Respiratory/Chest: Denies cough or dyspnea Gastrointestinal Gastrointestinal: Reports nausea; Denies vomiting Genitourinary Genitourinary ED: Denies dysuria or hematuria Musculoskeletal Musculoskeletal: Denies back pain or neck pain Integumentary Denies abscess or rash Neurologic Neurologic: Denies headache(s) or weakness Allergic/Immunologic Allergic/Immunologic ED: Denies mouth swelling or urticaria EXAM Physical Exam Const Vital Signs: 12/07/20 21:34 12/07/20 21:38 12/07/20 21:41 Temperature 97.2 F L 97.2 F L Temperature Source Temporal Temporal Pulse Rate 136 H 136 H Respiratory Rate 37 H 37 H Respiratory Effort Normal Non-Labored Respiratory Pattern Normal Blood Pressure 78/57 L 78/57 L Blood Pressure Mean 64 64 Pulse Ox 95 95 Oxygen Delivery Method Room Air Room Air Oxygen Flow Rate (L/min) 12/07/20 21:44 12/07/20 21:52 12/07/20 22:08 Temperature 97.2 F L Temperature Source Pulse Rate 139 H Respiratory Rate 28 H 34 H Respiratory Effort Respiratory Pattern Blood Pressure 98/60 113/64 Blood Pressure Mean 80 Pulse Ox 96 96 Oxygen Delivery Method Nasal Cannula Oxygen Flow Rate (L/min) 2 12/07/20 22:12 Temperature Temperature Source Pulse Rate 137 H Respiratory Rate 35 H Respiratory Effort Respiratory Pattern Blood Pressure 95/60 Blood Pressure Mean 71 Pulse Ox 96 Oxygen Delivery Method Nasal Cannula Oxygen Flow Rate (L/min) 3 Positive well nourished, well developed and obese General Appearance ED: well developed Nutritional Appearance: obese HEENT Reports moist mucous membranes Neck supple and no JVD Resp normal respiratory effort and clear to auscultation bilaterally Cardio regular rate and regular rhythm GI normal to inspection, nondistended, normoactive bowel sounds and non-tender Palpation: soft Neuro oriented x3, CN's II-XII intact bilaterally and no sensory deficits noted Sensorium / Orientation: alert Motor Exam: strength 5/5 throughout Psych mental status grossly normal MDM MDM MDM Narrative Medical decision making narrative: EKG was obtained. On my interpretation, it showed sinus tachycardia with a rate of 140. There is ST elevation in leads II, III, and aVF. There are some reciprocal changes in leads I and aVL. MD interval, QRS interval, and QTc interval within normal limits. There is left axis deviation of -84. Patient was given aspirin, heparin, and Brilinta. Case was discussed with Dr. Tipton. He is currently in the [employer] with another patient and recommended transfer to another facility. 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 Patient will be transferred there. Patient understands and is agreeable with the plan. All questions were answered. Lab Data Labs: Laboratory Results - last 24 hr 12/07/20 12/07/20 12/07/20 21:13 21:13 21:45 WBC 12.5 H RBC 4.66 Hgb 13.4 Hct 38.4 MCV 82.4 MCH 28.8 MCHC 34.9 RDW Std Deviation 38.2 RDW Coeff of Ning 12.6 Plt Count 86 L MPV 11.9 Immature Gran % (Auto) 1.400 H Neut % (Auto) 93.2 H Lymph % (Auto) 2.7 L [place] % (Auto) 2.0 Eos % (Auto) 0.2 Baso % (Auto) 0.5 Absolute Neuts (auto) 11.7 H Absolute Lymphs (auto) 0.34 L Nucleated RBC % 0 Differential Comment SCANNED Platelet Estimate MOD DEC PT 16.3 H INR 1.4 APTT 30.3 Sodium 130 L Potassium 3.3 L Chloride 95 L Carbon Dioxide 24.0 Anion Gap 11 BUN 38 H Creatinine 2.24 H Estim Creat Clear Calc 33.49 Est GFR (MDRD) Af Amer 30 L Est GFR (MDRD) Non-Af 25 L BUN/Creatinine Ratio 17.0 Glucose 167 H Calcium 8.2 L Troponin I High Sens 3627 H* Radiography Diagnostic Testing: Radiology Impression Chest X-Ray 12/07/20 22:05 IMPRESSION: Normal x-ray examination of the chest. Electronically Signed: Edwin Morales DO at 22:43 EDT Tel , Service support , Critical Care Time Critical Care Time: Yes Critical care time (excluding procedures): 30-74 minutes (34), Including time spent:, Discussing w/Patient &/or Family/Product Safety Expert, Discussing w/Consultants, Arranging Admission or Transfer and Performing Direct Patient Care at Bedside Discharge Plan Triage Chief Complaint: Weakness ED Provider: lEiot Ryan Dx/Rx/DC Orders Clinical Impression: STEMI (ST elevation myocardial infarction) Prescriptions: No Action lisinopril-hydrochlorothiazide 10-12.5 mg Tablet 1 tab PO DAILY RF: 0 Primary Care Provider: Alfonso Ventura Referrals: Alfonso Ventura DO [Primary Care Provider] - Disposition Disposition: Acute Care Hospital Discharge Location: [facility] Discharge Date/Time: 12/07/20 22:34
[2020-12-07 22:05] LABS: Absolute Lymphocyte Count 0.34 X10^3/uL (0.83-4.51); Absolute Neutrophil Count 11.7 X10^3/uL (2.0-7.7); Basophil# 0.06 X10^3/uL; Basophil% 0.5 % (0-1); Eosinophil# 0.03 X10^3/uL; Eosinophils% 0.2 % (0-5); Hematocrit 38.4 % (37-47); Hemoglobin 13.4 g/dL (12.0-15.0); Lymphocyte # 0.34 X10^3/ul (0.83-4.51); Lymphocyte % 2.7 % (19-41); Mean Corp Hgb Conc 34.9 g/dL (32-36); Mean Corpuscular Hgb 28.8 pg (27.0-32.0); Mean Corpuscular Volume 82.4 fL (81-99); Mean Platelet Vol. 11.9 fl (6.2-12.0); Monocyte# 0.25 X10^3/uL; NRBC Flagged by Analyzer 0 % (0-5); Neutrophil # 11.68 X10^3/uL (2.7-7.7); Neutrophil % 93.2 % (47-70); POSITIVE COUNT YES; POSITIVE DIFFERENTIAL YES; Platelet Count 86 K/mm3 (150-450); RBC Distribution Width CV 12.6 % (11.6-14.6); RBC Distribution Width SD 38.2 fl (35.1-43.9); Red Blood Count 4.66 M/mm3 (4.2-5.4); White Blood Count 12.5 K/mm3 (4.4-11.0)
--- NOTE | 2020-12-07 22:05 | RAD_ITS ---
STUDY: X-RAY CHEST REASON FOR EXAM: Female, 45 years old. chest pain TECHNIQUE: Single AP portable view of the chest. COMPARISON: None. FINDINGS: The lungs are clear and expanded. There is no demonstrated pleural abnormality. Normal size heart. Normal mediastinum and hipolito. Normal visualized pulmonary arteries. Normal visualized aortic arch and descending thoracic aorta. Normal visualized thoracic spine. Normal visualized ribs, clavicles, and shoulders. There is no demonstrated abnormality of the visualized soft tissue structures of the upper abdomen. RAD/Chest 1 View (Portable) IMPRESSION: Normal x-ray examination of the chest. Electronically Signed: Edwin Morales DO at 22:43 EDT Tel , Service support ,
[2020-12-07 22:08] VITALS: BP 113/64; PULSE 139; RESP 34; TEMP 36.2; O2SAT 96
[2020-12-07 22:08] LABS: Differential Indicated SCAN CRITERIA MET
[2020-12-07] MEDS: 0.9% Normal Saline 1,000 ML 1000 ML IV (22:08)
[2020-12-07 22:11] LABS: International Normalized Ratio 1.4; Partial Thromboplast Time 30.3 Seconds (24.1-36.2); Prothrombin Time (Protime)PT. 16.3 SECONDS (11.7-14.9)
[2020-12-07 22:12] VITALS: BP 95/60; PULSE 137; RESP 35; O2SAT 96
--- NOTE | 2020-12-07 22:15 | ED.RN ---
Called report to [facility] and facesheet and ecg faxed to [phone]
[2020-12-07 22:28] LABS: Anion Gap 11 (5-15); BUN 38 mg/dL (7-18); Calcium,Total 8.2 mg/dL (8.5-10.1); Chloride 95 mmol/L (98-107); Creatinine, Serum 2.24 mg/dL (0.55-1.02); EST Glomerular Filtration Rate 25 mL/min (>60); Est Glom Filt Rate - Afr Amer 30 mL/min (>60); Estimated Creatinine Clearance 33.49 ml/min; Glucose 167 mg/dL (74-106); Potassium 3.3 mmol/L (3.5-5.1); Sodium Level 130 mmol/L (136-145); Troponin-I HS 3627 pg/mL (3.0-54.0)
[2020-12-07 22:42] LABS: Differential Comment SCANNED
[2020-12-07 22:43] LABS: Platelet Estimate MOD DEC (ADEQ)
== END 2020-12-07 22:34 | disposition short-term general hospital (02) ==
PROVIDERS: Emergency Provider Emergency Medicine; PCP Family Medicine
DX: I21.19 ST elevation (STEMI) myocardial infarction involving other coronary artery of inferior wall (principal); E78.5 Hyperlipidemia, unspecified; I10 Essential (primary) hypertension; I48.92 Unspecified atrial flutter; Z87.891 Personal history of nicotine dependence; E66.9 Obesity, unspecified; Z87.442 Personal history of urinary calculi
CPT/HCPCS: 71045; 80048; 84484; 85025; 85610; 85730; 93005; 99285; J7030; A4216

== ENCOUNTER → 2021-04-03 09:49 | Outpatient (CLI) | payer OTHER, SELFPAY ==
[2021-04-03 09:59] LABS: Absolute Lymphocyte Count 2.23 X10^3/uL (0.83-4.51); Basophil# 0.08 X10^3/uL; Basophil% 0.8 % (0-1); Eosinophil# 0.33 X10^3/uL; Eosinophils% 3.3 % (0-5); Hemoglobin 10.1 g/dL (12.0-15.0); Lymphocyte # 2.23 X10^3/ul (0.83-4.51); Lymphocyte % 22.3 % (19-41); Mean Corp Hgb Conc 31.6 g/dL (32-36); Mean Corpuscular Hgb 27.3 pg (27.0-32.0); Mean Corpuscular Volume 86.5 fL (81-99); Mean Platelet Vol. 10.4 fl (6.2-12.0); Monocyte# 0.25 X10^3/uL; Monocyte% 2.5 % (0-10); NRBC Flagged by Analyzer 0 % (0-5); Neutrophil # 7.01 X10^3/uL (2.7-7.7); Neutrophil % 70.2 % (47-70); Platelet Count 416 K/mm3 (150-450); RBC Distribution Width CV 14.3 % (11.6-14.6); RBC Distribution Width SD 45.1 fl (35.1-43.9)
[2021-04-03 10:14] LABS: Creatinine, Serum 0.86 mg/dL (0.55-1.02); EST Glomerular Filtration Rate 76 mL/min (>60); Est Glom Filt Rate - Afr Amer 92 mL/min (>60)
[2021-04-03 10:49] LABS: Vancomycin, Trough Level 10.7 ug/mL (5.0-15.0)
== END ==
PROVIDERS: PCP Family Medicine; Visit Provider Family Medicine
DX: Z79.2 Long term (current) use of antibiotics (principal)
CPT/HCPCS: 80202; 82565; 85025

== ENCOUNTER → 2021-04-10 10:23 | Outpatient (CLI) | payer OTHER, SELFPAY ==
[2021-04-10 11:26] LABS: Absolute Lymphocyte Count 2.33 X10^3/uL (0.83-4.51); Absolute Neutrophil Count 6.2 X10^3/uL (2.0-7.7); Basophil# 0.09 X10^3/uL; Basophil% 0.9 % (0-1); Eosinophil# 0.53 X10^3/uL; Eosinophils% 5.6 % (0-5); Hematocrit 33.2 % (37-47); Hemoglobin 10.4 g/dL (12.0-15.0); Lymphocyte # 2.33 X10^3/ul (0.83-4.51); Lymphocyte % 24.4 % (19-41); Mean Corp Hgb Conc 31.3 g/dL (32-36); Mean Corpuscular Volume 86.2 fL (81-99); Mean Platelet Vol. 10.5 fl (6.2-12.0); Monocyte# 0.39 X10^3/uL; Monocyte% 4.1 % (0-10); NRBC Flagged by Analyzer 0 % (0-5); Neutrophil # 6.15 X10^3/uL (2.7-7.7); Neutrophil % 64.5 % (47-70); Platelet Count 419 K/mm3 (150-450); RBC Distribution Width CV 14.9 % (11.6-14.6); RBC Distribution Width SD 45.9 fl (35.1-43.9); Red Blood Count 3.85 M/mm3 (4.2-5.4); White Blood Count 9.5 K/mm3 (4.4-11.0)
[2021-04-10 11:37] LABS: Creatinine, Serum 0.81 mg/dL (0.55-1.02); EST Glomerular Filtration Rate 82 mL/min (>60); Est Glom Filt Rate - Afr Amer 99 mL/min (>60)
== END ==
PROVIDERS: PCP Family Medicine; Visit Provider Family Medicine
DX: Z79.2 Long term (current) use of antibiotics (principal)
CPT/HCPCS: 82565; 85025

== ENCOUNTER → 2021-04-11 09:50 | Outpatient (CLI) | payer OTHER, SELFPAY | PROVIDERS: PCP Family Medicine | DX: Z79.2 Long term (current) use of antibiotics (principal) | CPT/HCPCS: 80202 ==

== ENCOUNTER → 2021-04-17 10:49 | Outpatient (CLI) | payer OTHER, SELFPAY ==
[2021-04-17 11:31] LABS: Absolute Lymphocyte Count 1.77 X10^3/uL (0.83-4.51); Absolute Neutrophil Count 2.4 X10^3/uL (2.0-7.7); Basophil# 0.05 X10^3/uL; Eosinophil# 0.42 X10^3/uL; Eosinophils% 8.7 % (0-5); Hematocrit 33.8 % (37-47); Hemoglobin 10.5 g/dL (12.0-15.0); Lymphocyte # 1.77 X10^3/ul (0.83-4.51); Lymphocyte % 36.6 % (19-41); Mean Corp Hgb Conc 31.1 g/dL (32-36); Mean Corpuscular Hgb 26.2 pg (27.0-32.0); Mean Corpuscular Volume 84.3 fL (81-99); Mean Platelet Vol. 10.3 fl (6.2-12.0); Monocyte% 4.1 % (0-10); NRBC Flagged by Analyzer 0 % (0-5); Neutrophil # 2.38 X10^3/uL (2.7-7.7); Neutrophil % 49.4 % (47-70); Platelet Count 292 K/mm3 (150-450); RBC Distribution Width CV 14.7 % (11.6-14.6); RBC Distribution Width SD 45.1 fl (35.1-43.9); Red Blood Count 4.01 M/mm3 (4.2-5.4); White Blood Count 4.8 K/mm3 (4.4-11.0)
[2021-04-17 11:47] LABS: EST Glomerular Filtration Rate 82 mL/min (>60); Est Glom Filt Rate - Afr Amer 100 mL/min (>60)
[2021-04-17 11:49] LABS: Vancomycin, Trough Level 15.3 ug/mL (5.0-15.0)
== END ==
PROVIDERS: PCP Family Medicine
DX: Z79.2 Long term (current) use of antibiotics (principal)
CPT/HCPCS: 80202; 82565; 85025

== ENCOUNTER → 2021-04-24 | Outpatient (CLI) | payer OTHER, SELFPAY ==
[2021-04-24 10:08] LABS: Absolute Lymphocyte Count 1.92 X10^3/uL (0.83-4.51); Absolute Neutrophil Count 4.1 X10^3/uL (2.0-7.7); Basophil# 0.07 X10^3/uL; Eosinophil# 0.34 X10^3/uL; Hematocrit 36.9 % (37-47); Hemoglobin 11.3 g/dL (12.0-15.0); Lymphocyte # 1.92 X10^3/ul (0.83-4.51); Lymphocyte % 28.4 % (19-41); Mean Corp Hgb Conc 30.6 g/dL (32-36); Mean Corpuscular Hgb 25.3 pg (27.0-32.0); Mean Corpuscular Volume 82.6 fL (81-99); Mean Platelet Vol. 11.3 fl (6.2-12.0); Monocyte# 0.36 X10^3/uL; Monocyte% 5.3 % (0-10); NRBC Flagged by Analyzer 0 % (0-5); Neutrophil # 4.06 X10^3/uL (2.7-7.7); POSITIVE COUNT YES; RBC Distribution Width CV 14.5 % (11.6-14.6); RBC Distribution Width SD 43.1 fl (35.1-43.9); Red Blood Count 4.47 M/mm3 (4.2-5.4); White Blood Count 6.8 K/mm3 (4.4-11.0)
[2021-04-24 10:21] LABS: Vancomycin, Trough Level 14.6 ug/mL (5.0-15.0)
[2021-04-24 10:35] LABS: Creatinine, Serum 0.87 mg/dL (0.55-1.02); EST Glomerular Filtration Rate 75 mL/min (>60); Est Glom Filt Rate - Afr Amer 91 mL/min (>60)
[2021-04-24 10:40] LABS: Differential Indicated SCAN CRITERIA MET; Platelet Estimate ADEQUATE (ADEQ)
== END | disposition home or self-care (01) ==
DX: Z51.81 Encounter for therapeutic drug level monitoring (principal); Z79.2 Long term (current) use of antibiotics
CPT/HCPCS: 80202; 82565; 85025

== ENCOUNTER → 2021-05-01 12:01 | Outpatient (CLI) | payer OTHER, SELFPAY ==
[2021-05-01 12:18] LABS: Absolute Lymphocyte Count 1.87 X10^3/uL (0.83-4.51); Absolute Neutrophil Count 7.4 X10^3/uL (2.0-7.7); Eosinophil# 0.27 X10^3/uL; Eosinophils% 2.6 % (0-5); Hematocrit 37.1 % (37-47); Hemoglobin 11.6 g/dL (12.0-15.0); Lymphocyte # 1.87 X10^3/ul (0.83-4.51); Lymphocyte % 18.1 % (19-41); Mean Corp Hgb Conc 31.3 g/dL (32-36); Mean Corpuscular Hgb 25.8 pg (27.0-32.0); Mean Corpuscular Volume 82.4 fL (81-99); Mean Platelet Vol. 10.7 fl (6.2-12.0); Monocyte# 0.58 X10^3/uL; Monocyte% 5.6 % (0-10); NRBC Flagged by Analyzer 0 % (0-5); Neutrophil # 7.44 X10^3/uL (2.7-7.7); Neutrophil % 72.2 % (47-70); Platelet Count 307 K/mm3 (150-450); RBC Distribution Width CV 14.8 % (11.6-14.6); RBC Distribution Width SD 44.3 fl (35.1-43.9); White Blood Count 10.3 K/mm3 (4.4-11.0)
[2021-05-01 12:37] LABS: Creatinine, Serum 0.82 mg/dL (0.55-1.02); EST Glomerular Filtration Rate 80 mL/min (>60); Est Glom Filt Rate - Afr Amer 96 mL/min (>60)
[2021-05-01 12:39] LABS: Vancomycin, Trough Level 14.8 ug/mL (5.0-15.0)
== END ==
DX: I33.0 Acute and subacute infective endocarditis (principal); B95.62 Methicillin resistant Staphylococcus aureus infection as the cause of diseases classified elsewhere
CPT/HCPCS: 80202; 82565; 85025

== ENCOUNTER → 2021-05-02 09:07 | Outpatient (CLI) | payer OTHER, SELFPAY ==
--- NOTE | 2021-05-02 09:16 | CR.HP_ITS ---
CR - History & Physical - General Arrival date:: 05/02/21 Arrival time:: 09:00 Date of Referral:: 03/28/21 Date of CR Evaluation:: 05/02/21 Referring Physician: Dr. 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 - Sleep Disorder Evaluation Hx of Sleep Apnea: No Do you snore loudly (louder than talking or can be heard through closed doors)?: No Do you often feel tired/ fatigued/ sleepy during daytime?: No Has anyone observed you stop breathing during sleep?: No History of Hypertension (for STOP score): Yes STOP Results: Negative - Medications Home Medications: Ambulatory Orders Medication Instructions Recorded lisinopril-hydrochlorothiazide 1 tab PO DAILY 12/05/20 Adults Multivitamin 05/02/21 COVID-19 vacc,mRNA(Pfizer)(PF) 05/02/21 acetaminophen 650 mg PO Q6H PRN 05/02/21 amiodarone 200 mg PO DAILY 05/02/21 apixaban 5 mg PO BID 05/02/21 aspirin 81 mg PO DAILY 05/02/21 atorvastatin 10 mg PO DAILY 05/02/21 docusate sodium 100 mg PO TID 05/02/21 furosemide 20 mg PO DAILY 05/02/21 guaifenesin [Mucinex] 600 mg PO Q12H PRN 05/02/21 ibuprofen 400 mg PO Q8H PRN PRN 05/02/21 lidocaine [Aspercreme (lidocaine)] patch TOPICAL PRN 05/02/21 metoprolol tartrate 25 mg PO BID 05/02/21 potassium chloride 20 meq PO DAILY 05/02/21 trazodone 50 mg PO QHS PRN 05/02/21 - Allergies Allergies/Adverse Reactions: Allergies No Known Allergies Allergy (Verified 06/06/20 07:02) Advanced Directives - Advanced Directives Power of Social Insurance Analyst: Yes Living Will: Yes Advance Directives Information Provided: No Advance Directives on File: No DNR Order?:: No - MOLST See MOLST form: No Past Medical History - Covid-19 Screening Fever: No Unexplained muscle aches: No Current respiratory symptoms: No Upper respiratory infections symptoms: No Gastro-intestinal symptoms: No [id number] symptoms: No Date of testin07/15/20 - 02/15/21, 08/05/2020, 07/15/2020 Had contact w/person w/symptoms or Covid-19 (+) last 14 days: No Has High Risk Exposures ID'd by Health dept/Inf Control team: No 65 years or older:: No Lives in Assisted Living facility:: No Has a chronic lung disease or moderate to severe asthma:: No Has a serious heart condition:: Yes Immunocompromised:: No Severely obese (Body Mass Index of 40 or higher):: No Diabetic:: No Has chronic kidney disease undergoing dialysis:: No Has liver disease:: No - Past Medical Illness Medical History: Past Medical History (Last Reviewed 12/07/20 @ 22:[address] Eliot Ryan DO) Hypertension I10 Kidney calculi N20.0 Mitral valve disorder I05.9 - Past Surgical History Surgical History: Past Surgical History (Last Reviewed 12/07/20 @ 22:[address] Eliot Ryan DO) H/O: hysterectomy Z90.710 - Family History Summary Family History: Family History (Last Updated 12/07/20 @ 21:[address] 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 Left click = Reports ([place]) Review of Present Symptoms: Reports: Operative Discomfort - sensative still 17 incision, Fatigue, Appetite - Normal, Appetite - Special Diet - just off of special diet, no added salt, low fat, low cholesterol., Sleep - Normal - sleep about 6 hours. 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 - Vital Signs Temperature: 97.4 F Respiratory Rate: 14 Pulse Ox: 96 Blood Pressure: 124/66 - Pulse Pulse Rate: 75 Pulse Rhythm: Regular - Hypertension Blood Pressure Sitting - Left Arm: 124/66 - Obesity Height: 5 ft 9 in Weight:: 282 lb Weight in Pounds: 282.0 lbs Weight Source: Stated by Patient Body Mass Index (BMI): 41.6 Nutritional Referral for Obesity: Yes - Physical Inactivity Physical Inactivity: None - Risk Stratification Risk Guidelines: Lowest Risk: Risk Factor for Smoking, Risk Factor for Dyslipidemia, Risk Factor for Hypertension, Risk Factor for Depression, Moderate Risk: Risk Factor for Sedentary Lifestyle - still recovering from the stroke; getting better though, Highest Risk: Risk Factor for Obesity - Family History Family History: Family History (Last Updated 12/07/20 @ 21:[address] Rodrick Tee MD) Other Hypertension Motivation - Motivation to Participate On a scale of 1 to 10, how prepared are you to commit to attending program?: 10 What do you see as barriers to successfully being able to complete the program?: no What do you see as the benefits of succesfully completing the program? In other words, what do you hope to get out of participating in the program?: enhance physical ability, get stronger, walk again. Are there issues you are dealing with that will interfere with completing the program?: still have some residual weakness from the stroke. Do you have a spouse or signficant other, family or friends who will help support you to complete the program?: Yes
--- NOTE | 2021-05-02 09:16 | CR.ITP_ITS ---
Diagnosis - General Information Admitting Diagnosis: Valve Repair/Replacement Barriers to Learning: No Barriers Gave educational material for:: Treating Heart Disease, Emotions & Heart Disease, Stress Management & Relaxation, Sleep Disorders & Heart Disease, How The Heart Works, What it means to have Heart Disease, How Coronary Artery Disease is Diagnosed, Heart Procedures, What Heart Medications Do, Risk Factors & Modifications, Living an Active Life, Nutrition - Education/Goals Individual Counseling: Initial Assessment: High Blood Pressure, Overweight/Obesity, Hypertension, Sedentary Lifestyle Cardiac Rehabilitation Goals: 1. Maintain the individual as the primary focus of care. 2. To improve the patient's quality of life. 3. Identification of cardiac risk factors and provide cardiac risk factor management. 4. Enhance the psychosocial status of the patient. 5. Reconditioning enough to allow the patient to resume customary activities. 6. Control symptoms of cardiac disease Personal Goals: Initial Assessment: Participate in home exercise program, Improve knowledge of cardiac disease, Improve muscle strength and endurance, Improve diet and eating habits (eat healthier), Control risk factors (learn risk factor modification) Scale for measuring improvement of personal goals: Enter appropriate number in Comments. 2 = Unchanged. 3 = Slightly Better. 4 = Moderate Improvement. 5 = Met my Goal - Diagnosis & Disease Process Outcomes/Goals: Pt IDs own risk factors & lifestyle modifications by Session 10, Verbalizes symptoms of angina & response by session 3., Pt independently manages Plan/Interventions: Assist Pt to ID & engage in lifestyle modification to reduce CVD risk, Instruct on individual risk factors, Review symptoms of angina & emergency actions, Review secondary diagnosis & identify educational needs. - Safety Referral to Physical Therapy: No Referral to [facility] Case Management: No Fall Risk Assessed:: Yes Assistive Devices:: None, Cane - only if needed. Exercise - Initial Assessment - Visit Date of Eval: 05/02/21 Session #:: 0 - pre-cardiac rehab eval Mets: Pre-: >7 METS for 30 minutes by discharge - be able to walk 3 to 4 miles again. - Physician Prescribed Exercise Modalities: Treadmill, Biodyne - Replaced with SciFit Lateral workplace trainer and assessor, Airdyne, NuStep Frequency: 3x/week for 12 weeks [36 sessions] Intensity: 60-80% of age predicted maximum heart rate reserve Current METSs:: 3.0 Target Heart Rate:: 145-162 Resting Blood Pressure: 124/66 EKG Type: sinus rhtyhm with rare PACs. Current Physical Activity or Exercising minutes: >1 hour around the house, walking. - Outcomes & Goals Goals:: Verbalizes understanding of THR, RPE & goal METS by session 6, Documents in home exercise log/reports 30 min aerobic 5 day/wk by DC, Demonstrates accurate pulse taking by DC - Intervention & Plan Exercise Program Goals: Instruct on personal THR & RPE, Instruct on MET level & personal MET goal, Show patient to take own pulse /validate performance until accurate, Instruct on home exercise - Physical Activity Home Exercise Physical Activity - Home Exercise: Safe Exercise, Warm-up, Self-monitoring, Cool-Down, Home Exercise > 30 min Daily, Sitting Time <3 hours/daily - Outcomes & Goals Outcomes/Goals: Demonstrates correct Warm-up/exercise Cool-Down (S3) if = 2.5 METs, Verbalizes symptoms of exercise intolerance by Session 3 (S3), Demonstrate safe equipment use (S3) & follows exercise prescrition (6) - Intervention & Plan Plan/Intervention: Instruct warm-up & cool-down if exercising at > 2 METs, Instruct on symptoms of exercise intolerance & actions to take, Instruct & monitor on saf, Assess intial functional capacity & safety risk Nutrition - Initial Assessment - Program Goals Nutrition Program Goals: LDL <100 optimal. 100 - 129 Near optimal. 130 - 159 Borderline High. 160 - 189 High. Total Cholesterol <200 desirable. 200 - 239 Borderline High. >/= 240 High. HDL < 40 Low >/=60 High. Triglycerides <150 desirable. <199 optimal. VlDL 5 - 40. HgbA1C <7%. BMI <25 Patient has diagnosis of Hyperlipidemia (ICD E78)?: No - Visit Date of Assessment:: 05/02/21 Session #:: 0 - pre-cardiac rehab eval - Cholesterol/Lipids Determine presence & major risk factors that modify LDL goal: Hypertension or hy pertensive medication, Age men > 45 years; women >/= 55 years Outcomes/Goals: Pt IDs own risk factors & lifestyle modifications by Session 10, Verbalizes symptoms of angina & response by session 3., Pt independently manages Intervention/Plan: Instruct on personal lipid levels & lipid goals/NCEP guidelines, Instruct on cholesterol Referral to dietitian:: Yes - Weight Mgt (Other Care) Height: 5 ft 8.5 in Weight:: 282 lb BMI: 42.2 Diagnosis Overweight/Obesity BMI> 30% ICD-10 E66: Yes Diagnosis High BMI/Morbid Obesity BMI> 35% ICD-10 Z68: Yes Outcomes/Goals: Pt sets, maintains & shows weight loss goal & trend during rehab Intervention/Plan: Instruct on ideal BMI & set weight loss goal w/patient, Assist pt to ID & incorporate diet changes for weight loss by S9, Refer to Structured Weight Loss program as appropriate, Encourage goal of using 250- 300dcal per session for weight loss - Healthy Eating Habits Will attend diet classes:: Yes Outcomes/Goals:: Consume diet rich in vegs,fruits,whole grain/high fiber,fish,lean meat, Limit sat/trans fats,cholesterol & added salts & sugars Intervention/Plan:: Assess current eating habits - Education Gave educational materials for:: Healthy eating Nutrition - 30-Day Assessment Nutrition - 60-Day Assessment Nutrition - 90-Day Assessment Nutrition - Final Assessment Medical - Initial Assessment - Visit Date of Eval: 05/02/21 Session #:: 0 - pre-cardiac rehab evaluation - Medication Compliance Preventative Medication(s):: Aspirin, Statin/lipid H/O mental health issues: depression, anxiety, or addiction?: No Doesn?t believe in the benefits of treatment?: No Believes medications are unnecessary or harmful?: No Has a concern about medication side effects?: No Expresses concern over the cost of medications?: No Outcomes/Goals: Verbalizes medications,desired effect & common side effects @ DC, Pt self-reports following medication regimen, Keeps card in wallet w/medications listed by DC Interventions/plans: Instruct on medication effects & side effects, Review medication list w/patient every two weeks, Instruct importance of taking meds as ordered & assist problem solving - Tobacco Use Tobacco Use: Non-smoker - Hypertension Hypertension Diagnosis:: Hypertension ICD-10 I10 Resting Blood Pressure:: 122/64 [place] [employer] Hypertension Guidelines: [place] [employer] Hypertension Guidelines. Normal BP Less than 120/80. Elevated BP 120/80. Hypertension Stage 1: BP 130-139/80-89. Hypertesnion Stage 2: BP 140 or higher/90 or higher. Hypertension Crisis: BP higher than 180/120 Outcomes/Goals: Able to verbalize/achieve optimal blood pressure <130/80, Incorporates diet changes & exercise for blood pressure control by DC Interventions/plan: Instruct on optimal blood pressure, hypertension & medications, Instruct on effects of sodium, alcohol, stress, exercise &hypertension - Tobacco Cessation Referral Smoking Cessation Referral:: No Individual Education/Counseling:: No Education Schedule Given:: Yes Medical- 30-Day Assessment Medical- 60-Day Assessment Medical- 90-Day Assessment Medical - Final Assessment Psychosocial - Initial Assess - VIsit Date of Evelieser: 05/02/21 Session #:: 0 - pre-cardiac rehab evaluation Not Applicable: Yes History of previous Mental disease:: No - Psychosocial Test Tool Used:: [employer] Power QOL Cardiac, PHQ-9 Questionnaire phq-9 Severity: Severity. 1-4 Minimal Depression. 5-9 Mild Depression. 10-14 Moderate Depression. 15-19 Moderately Sever Depression. 20-27 Severe Depression. Rule: - Referral to Behavioral Health PS - Interventions: Yes Attend Stress Management Classes, No Referral to Behavioral Health if PHQ-9 score >9:, No Referral to [facility], No Referral to Physician if PHQ-9 if score is 5-9: - Outcomes/Goals: See list Psychosocial Outcomes/Goals:: ID's personal stressors & 2 strategies to manage stress by discharge - Intervention/Plan: See List Interventions/Plan:: Assess stressors,coping strategies & signs of derpression on admission, Instruct/assist pt to develop coping & personal stress Mgt strategies, Instruct patient to recognize signs & symptoms of depression, Instruct patient to recog Psychosocial - 30-Day Assess Psychosocial - 60-Day Assess Psychosocial - 90-Day Assess Psychosocial - Final Assessmen Patient Health Questionnaire Initial Assessment 1. Little interest or pleasure in doing things: Not at all 2. Feeling down, depressed, or hopeless: Not at all 3. Trouble falling or staying asleep, or sleeping too much: Several days 4. Feeling tired or having little energy: Several days 5. Poor appetite or overeating: More than half the days 6. Feeling bad about yourself -- or that you are a failure or have let yourself or your family down: Several days 7. Trouble concentrating on things, such as reading the newspaper or watching television: Not at all 8. Moving or speaking so slowly that other people could have noticed. Or the opposite - being so fidgety or restless that you have been moving around a lot more than usual: Several days 9. Thoughts that you would be better off , or of hurting yourself in some way: Not at all How difficult have these problems made it for you to do your work, take care of things at home, or get along with other people?: Not difficult at all Total Score: 6 PETR-Q SV Test - Statements CAD is a disease of the arteries in the heart: False Examples of risk factors for heart disease: True Angina is chest pain or discomfort: True The benefits of resistance training include: False Eating more meat and dairy products: False Anti-platelet medications such as aspirin are important: I Don't Know The only effective way to manage stress: False An exercise warm-up slowly increases heart rate: True Prepared, processed foods usually have high sodium: True Depression is common after a heart attack: True The statin medications lower cholesterol: True To control blood pressure, lower the amount of sodium: True If someone gets chest discomfort during walking: False Transfats are partially hydrogenated vegetable oils: I Don't Know Sleep apnea that is not treated increases the risk: I Don't Know To control cholesterol, one should become a vegetarian: False Someone knows if he/she is exercising at the right level: False Diabetes cannot be prevented with exercise & health eating: True Stress is a large risk for heart attack: True A diet that can help lower blood pressure is rich in: True - Total Score Total Correct Responses: 14 Self-Efficacy Initial Assessment We would like to know how confident you are in doing certain activities. Please select your confidence level for:: Select your confidence level for the following using the scale 1-10 where 1 is not at all confident and 10 is totally confident. Your score is the average of all 6 responses. Fatigue: How confident are you that you can keep the fatigue caused by your disease from interfering with the things you want to do? Select Number: 10 Physical Discomfort or Pain: How confident are you that you can keep the physical discomfort or pain of your disease from interfering with the things you want to do? Select Number: 10 Emotional Distress: How confident are you that you can keep the emotional distress caused by your disease from interfering with the things you want to do? Select Number: 8 Other Symptoms or Health Problems: How confident are you that you can keep other symptoms or health problems from interfering with the things you want to do? Select Number: 9 Different Tasks and Activities: How confident are you that you can do the different tasks and activities needed to manage your health condition so as to reduce your need to see a doctor? Select Number: 10 Medication: How confident are you that you can do things other than just taking medication to reduce how much your illness affects your everyday life? Select Number: 9 Total Score:: 9 Nutrition Survey - Nutrition Survey Initial Have you lost >10 lbs over the past 2 months without trying?: No Are you following a special diet at home for diabetes, low fat, or low salt?: Yes Are you interested in meeting with a dietitian for help understanding your diet?: No Do you eat less than 3 meals a day?: No Do you eat fatty meats (cross, sausage, ribs, etc), fried foods, desserts, large amounts of salad dressings, margarine, butter, or cheese most days?: Yes Do you have food allergies? [Enter types in comment field]: No Do you eat in restaurants more than 3 times a week?: No Do you season food with salt, seasoning salt, or garlic salt?: No Do you used canned, boxed, frozen meals, or soups, seasoning packets?: No Total Score:: 2
[2021-05-02 10:01] VITALS: BP 122/64; BP 124/66; BMI 42.2
[2021-05-02 10:04] VITALS: BP 124/66; PULSE 75; RESP 14; TEMP 36.3; O2SAT 96; BMI 41.6
== END ==
PROVIDERS: PCP Family Medicine
DX: Z95.2 Presence of prosthetic heart valve (principal); I10 Essential (primary) hypertension; I05.9 Rheumatic mitral valve disease, unspecified

== ENCOUNTER 2021-05-22 08:00 | Outpatient (RCR) | payer OTHER, SELFPAY ==
[2021-05-02 10:01] VITALS: BMI 42.2
== END 2021-05-22 23:59 ==
LOC: CR 08:00
PROVIDERS: PCP Family Medicine
DX: Z95.2 Presence of prosthetic heart valve (principal)
CPT/HCPCS: 93798

== ENCOUNTER 2021-06-05 08:34 | Outpatient (RCR) | payer OTHER, SELFPAY ==
[2021-05-02 10:01] VITALS: BMI 42.2
[2021-06-02 12:58] VITALS: BMI 44.4
== END 2021-06-19 23:59 ==
LOC: NS 08:34
PROVIDERS: PCP Family Medicine
DX: Z71.3 Dietary counseling and surveillance (principal); E66.01 Morbid (severe) obesity due to excess calories; I10 Essential (primary) hypertension; I05.9 Rheumatic mitral valve disease, unspecified; Z68.41 Body mass index [BMI] 40.0-44.9, adult
CPT/HCPCS: 97802

== ENCOUNTER 2021-06-19 08:00 | Outpatient (RCR) | payer OTHER, SELFPAY ==
[2021-05-02 10:01] VITALS: BMI 42.2
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
[2021-06-02 12:58] VITALS: BP 122/68; BP 132/84; BMI 44.4
== END 2021-06-19 23:59 ==
LOC: CR 08:00
PROVIDERS: PCP Family Medicine
DX: Z95.2 Presence of prosthetic heart valve (principal)
CPT/HCPCS: 93798

== ENCOUNTER 2021-07-17 08:30 | Outpatient (RCR) | payer OTHER, SELFPAY ==
[2021-06-02 12:58] VITALS: BMI 44.4
== END 2021-07-20 23:59 ==
LOC: NS 08:30
PROVIDERS: PCP Family Medicine
DX: Z71.3 Dietary counseling and surveillance (principal); E66.01 Morbid (severe) obesity due to excess calories; I10 Essential (primary) hypertension; I05.9 Rheumatic mitral valve disease, unspecified; Z68.41 Body mass index [BMI] 40.0-44.9, adult
CPT/HCPCS: 97803

== ENCOUNTER 2021-07-19 08:00 | Outpatient (RCR) | payer OTHER, SELFPAY ==
[2021-06-02 12:58] VITALS: BMI 44.4
[2021-06-20 00:37] VITALS: BP 122/68; BP 132/84
--- NOTE | 2021-06-30 13:42 | CR.ITP_ITS ---
Diagnosis Exercise - 60-day Assessment - Visit Date of Eval: 06/30/21 Session #:: 24 - Physician Prescribed Exercise Modalities: Treadmill, NuStep, Lateral Abie Frequency: 3x/week for 12 weeks [36 sessions] Intensity: 60-80% of age predicted maximum heart rate reserve Current METSs:: 5.0 progress slow due to secondary effects of stroke, but she is improving Target Heart Rate:: 145-162 Current RPE:: 12-13 Maximum Excercise HR:: 131 Resting Blood Pressure: 120/84 Maximum Exercise Blood Pressure: 144/90 EKG Type: Sinus rhythm to sinus tach with rare PAC, rare PVC w/aberrant beats Current Physical Activity or Exercising minutes: 38:36 - Outcomes & Goals Goals:: Verbalizes understanding of THR, RPE & goal METS by session 6, Documents in home exercise log/reports 30 min aerobic 5 day/wk by DC, Demonstrates accurate pulse taking by DC - Intervention & Plan Exercise Program Goals: Instruct on personal THR & RPE, Instruct on MET level & personal MET goal, Show patient to take own pulse /validate performance until accurate, Instruct on home exercise - 30-day Reassessments 30 day Reassessments:: Progressing - Physical Activity Home Exercise Physical Activity - Home Exercise: Safe Exercise, Warm-up, Self-monitoring, Cool-Down, Home Exercise > 30 min Daily, Sitting Time <3 hours/daily - Outcomes & Goals Outcomes/Goals: Demonstrates correct Warm-up/exercise Cool-Down (S3) if = 2.5 METs, Verbalizes symptoms of exercise intolerance by Session 3 (S3), Demonstrate safe equipment use (S3) & follows exercise prescrition (6) - Intervention & Plan Plan/Intervention: Instruct warm-up & cool-down if exercising at > 2 METs, Instruct on symptoms of exercise intolerance & actions to take, Instruct & monitor on saf, Assess intial functional capacity & safety risk - 30-day Reassessments 30 day Reassessments:: Progressing Nutrition - Initial Assessment Nutrition - 30-Day Assessment Nutrition - 60-Day Assessment - Program Goals Nutrition Program Goals: LDL <100 optimal. 100 - 129 Near optimal. 130 - 159 Borderline High. 160 - 189 High. Total Cholesterol <200 desirable. 200 - 239 Borderline High. >/= 240 High. HDL < 40 Low >/=60 High. Triglycerides <150 desirable. <199 optimal. VlDL 5 - 40. HgbA1C <7%. BMI <25 Patient has diagnosis of Hyperlipidemia (ICD E78)?: Yes - Visit Date of Assessment:: 06/30/21 Session #:: 24 - Cholesterol/Lipids Determine presence & major risk factors that modify LDL goal: Hypertension or hypertensive medication, Family history of premature CHD in Male < 55 years: female <65 yearsFa, Age men > 45 years; women >/= 55 years Outcomes/Goals: Pt IDs own risk factors & lifestyle modifications by Session 10, Verbalizes symptoms of angina & response by session 3., Pt independently manages Intervention/Plan: Instruct on personal lipid levels & lipid goals/NCEP guidelines, Instruct on cholesterol 30-day Reassessments:: Progressing - Diabetes (Other Core Measures) Diabetes Type: Not Applicable - Weight Mgt (Other Care) Not Applicable: No Height: 5 ft 8 in Weight:: 290 lb - no weight change BMI: 44.1 Diagnosis Overweight/Obesity BMI> 30% ICD-10 E66: Yes Diagnosis High BMI/Morbid Obesity BMI> 35% ICD-10 Z68: Yes Outcomes/Goals: Pt sets, maintains & shows weight loss goal & trend during rehab Intervention/Plan: Instruct on ideal BMI & set weight loss goal w/patient, Destiny t pt to ID & incorporate diet changes for weight loss by S9, Refer to Structured Weight Loss program as appropriate, Encourage goal of using 250-300dcal per session for weight loss 30 day Reassessments:: Not Met - made no changes over the 24 sessions - Healthy Eating Habits Will attend diet classes:: Yes Outcomes/Goals:: Consume diet rich in vegs,fruits,whole grain/high fiber,fish,lean meat, Limit sat/trans fats,cholesterol & added salts & sugars Intervention/Plan:: Assess current eating habits 30-day Reassessments:: Not Met - Education Gave educational materials for:: Healthy eating Nutrition - 90-Day Assessment Nutrition - Final Assessment Medical - Initial Assessment Medical- 30-Day Assessment Medical- 60-Day Assessment - Visit Date of Eval: 06/30/21 Session #:: 24 - Medication Compliance Preventative Medication(s):: Aspirin, ZACKARY inhibitor, Statin/lipid, Beta sahil, Eliquis H/O mental health issues: depression, anxiety, or addiction?: No Doesn?t believe in the benefits of treatment?: No Believes medications are unnecessary or harmful?: No Has a concern about medication side effects?: No Expresses concern over the cost of medications?: No Outcomes/Goals: Verbalizes medications,desired effect & common side effects @ DC, Pt self-reports following medication regimen, Keeps card in wallet w/medications listed by DC Interventions/plans: Instruct on medication effects & side effects, Review medication list w/patient every two weeks, Instruct importance of taking meds as ordered & assist problem solving 30-day Reassessments:: Progressing - Tobacco Use Tobacco Use: Non-smoker - Hypertension Hypertension Diagnosis:: Hypertension ICD-10 I10 Resting Blood Pressure:: 120/84 [place] [employer] Hypertension Guidelines: [place] [employer] Hypertension Guidelines. Normal BP Less than 120/80. Elevated BP 120/80. Hypertension Stage 1: BP 130-139/80-89. Hypertesnion Stage 2: BP 140 or higher/90 or higher. Hypertension Crisis: BP higher than 180/120 Peak Exercise Blood Pressure:: 144/90 Outcomes/Goals: Able to verbalize/achieve optimal blood pressure <130/80, Incorporates diet changes & exercise for blood pressure control by DC Interventions/plan: Instruct on optimal blood pressure, hypertension & medications, Instruct on effects of sodium, alcohol, stress, exercise &hypertension 30 day Reassessments:: Progressing - Tobacco Cessation Referral Smoking Cessation Referral:: No Individual Education/Counseling:: No Education Schedule Given:: Yes Medical- 90-Day Assessment Medical - Final Assessment Psychosocial - Initial Assess Psychosocial - 30-Day Assess Psychosocial - 60-Day Assess - VIsit Date of Eval: 06/30/21 Session #:: 24 Not Applicable: Yes History of previous Mental disease:: No - Psychosocial Test Tool Used:: PHQ-9 Questionnaire phq-9 Severity: Severity. 1-4 Minimal Depression. 5-9 Mild Depression. 10-14 Moderate Depression. 15-19 Moderately Sever Depression. 20-27 Severe Depression. Rule: - Referral to Behavioral Health PS - Interventions: Yes Attend Stress Management Classes, No Referral to Behavioral Health if PHQ-9 score >9:, No Referral to [facility], No Referral to Physician if PHQ-9 if score is 5-9: - Intervention/Plan: See List Interventions/Plan:: Assess stressors,coping strategies & signs of derpression on admission, Instruct/assist pt to develop coping & personal stress Mgt strategies, Instruct patient to recognize signs & symptoms of depression, Instruct patient to recog - 30-day Reassessments: 30 day Reassessments:: Progressing Psychosocial - 90-Day Assess Psychosocial - Final Assessmen Patient Health Questionnaire 60-Day Re-eval Assessment 1. Little interest or pleasure in doing things: Not at all 2. Feeling down, depressed, or hopeless: Not at all 3. Trouble falling or staying asleep, or sleeping too much: Not at all 4. Feeling tired or having little energy: Several days - also back to working 5. Poor appetite or overeating: More than half the days 6. Feeling bad about yourself -- or that you are a failure or have let yourself or your family down: Several days 7. Trouble concentrating on things, such as reading the newspaper or watching television: Not at all 8. Moving or speaking so slowly that other people could have noticed. Or the opposite - being so fidgety or restless that you have been moving around a lot more than usual: Not at all 9. Thoughts that you would be better off , or of hurting yourself in some way: Not at all How difficult have these problems made it for you to do your work, take care of things at home, or get along with other people?: Not difficult at all Total Score: 4 Self-Efficacy 60-Day Re-eval Assessment We would like to know how confident you are in doing certain activities. Please select your confidence level for:: Select your confidence level for the following using the scale 1-10 where 1 is not at all confident and 10 is totally confident. Your score is the average of all 6 responses. Fatigue: How confident are you that you can keep the fatigue caused by your disease from interfering with the things you want to do? Select Number: 9 Physical Discomfort or Pain: How confident are you that you can keep the physical discomfort or pain of your disease from interfering with the things you want to do? Select Number: 10 Emotional Distress: How confident are you that you can keep the emotional distress caused by your disease from interfering with the things you want to do? Select Number: 10 Other Symptoms or Health Problems: How confident are you that you can keep other symptoms or health problems from interfering with the things you want to do? Select Number: 10 Different Tasks and Activities: How confident are you that you can do the different tasks and activities needed to manage your health condition so as to reduce your need to see a doctor? Select Number: 10 Medication: How confident are you that you can do things other than just taking medication to reduce how much your illness affects your everyday life? Select Number: 10 Total Score:: 9 Nutrition Survey
[2021-06-30 13:51] VITALS: BP 120/84; BP 144/90; BMI 44.1
== END 2021-07-20 23:59 ==
LOC: CR 08:00
PROVIDERS: PCP Family Medicine
DX: Z95.2 Presence of prosthetic heart valve (principal)
CPT/HCPCS: 93798; 97803

== ENCOUNTER 2021-08-04 08:00 | Outpatient (RCR) | payer OTHER, SELFPAY ==
[2021-06-30 13:51] VITALS: BMI 44.1
[2021-07-21 00:37] VITALS: BP 120/84; BP 144/90
== END 2021-08-19 23:59 ==
LOC: CR 08:00
PROVIDERS: PCP Family Medicine
DX: Z95.2 Presence of prosthetic heart valve (principal)
CPT/HCPCS: 93798

== ENCOUNTER 2022-02-26 06:14 | Day surgery (SDC) | payer OTHER, SELFPAY ==
[2021-06-30 13:51] VITALS: BMI 44.1
[2022-02-26] MEDS: Lactated Ringers 1,000 ML 15 ML IV (06:49)
[2022-02-26 06:52] VITALS: BP 101/77; PULSE 95; RESP 18; TEMP 36.4; O2SAT 94; BMI 48.2
--- NOTE | 2022-02-26 07:22 | H&P.OPEN ---
HPI - General HPI Narrative AVTAR GRAY, is a 47 F who presents for screening colonoscopy. Patient denies any clinical changes since her previous appointment. Patient tolerated her prep. Patient did stop her Eliquis. from office visit 01/26/22 HPI: 47-year-old female presents for screening colonoscopy.? Patient's never had previous colonoscopy.? Patient denies any family history of colon cancer.? Patient denies any chronic abdominal pain/nausea/vomiting/reflux.? Patient is on Eliquis due to history of A. fib.? Patient did have a long extended hospital stay due to MRSA from an unknown source in November 2020.? Patient states he has bowel movements daily denies any blood. [facility] Medical History (Updated 02/22/22 @ 14:51 by Adriana Tran) Cardiology follow-up encounter DVT (deep venous thrombosis) Excessive bleeding Former smoker Heartburn High cholesterol History of atrial fibrillation History of echocardiogram History of edema History of kidney stones History of MRSA infection Hypertension Kidney calculi Mitral valve disorder Stroke/cerebrovascular accident Wears contact lenses Home Medications acetaminophen 325 mg tablet 650 mg PO Q6H PRN Pain 05/02/21 [History Last Taken Unknown] apixaban 5 mg tablet 5 mg PO BID 05/02/21 [History Last Taken Unknown] aspirin 81 mg tablet 81 mg PO DAILY 05/02/21 [History Last Taken Unknown] atorvastatin 10 mg tablet 10 mg PO QHS HLD 05/02/21 [History Last Taken Unknown] guaifenesin 600 mg tablet, extended release 12 hr (Mucinex) 600 mg PO Q12H PRN Cough 05/02/21 [History Last Taken Unknown] metoprolol tartrate 25 mg tablet 25 mg PO BID 05/02/21 [History Last Taken 02/26/22] lisinopril 10 mg tablet 10 mg PO BID 02/22/22 [History Last Taken 02/26/22] multivitamin 1 tab PO DAILY 02/22/22 [History Last Taken Unknown] topiramate 25 mg tablet 25 mg PO BID WT CONTROL 02/22/22 [History Last Taken Unknown] Allergy/AdvReac Type Severity Reaction Status Date / Time No Known Allergies Allergy Verified 02/22/22 11:24 Family History (Updated 01/26/22 @ 09:24 by Ela Figueroa) Father Diabetes Hypertension Heart disease CVA (cerebral vascular accident) Surgical History (Updated 02/22/22 @ 11:49 by Adriana Tran) H/O mitral valve repair H/O: hysterectomy History of heart surgery History of knee surgery History of loop electrical excision procedure (LEEP) Social History (Updated 01/26/22 @ 09:23 by Ela Figueroa) Smoking Status: Former smoker alcohol intake: never substance use type: does not use Past Medical/Surgical History Planned Operation Planned Operative Procedure/s: COLONOSCOPY S.O.S: No Previous Hospitalizations/Surgeries HX Hospitalizations: Yes (03/2021 OPEN HEART SURGERY; 07/2021 KIDNEY STONE) HX of Surgeries: breast reduction T&A knee surgery colposcopy x2 05/2020 lap hyster, BSO Any Problems With Anesthesia: No You/Your Family Experience Fever (Hyperthermia) With Anes: No Cholinesterase deficiency: No Cardiovascular Hx Chest Pain within Last 2 months: No Hx of Irregular Heartbeat and/or Afib: No Hx Heart Attack: No Hx Congestive Heart Failure: No Hx Rheumatic Fever: No Hx Hypertension: Yes (PER PT CONTROLLED ON MEDS) Hx Internal Defibrillator: No Hx Pacemaker: No Hx Cardiac Catheterization: No Hx Cardiac Surgery/Stents/Etc.: No Hx Stress Test: No Hx Pain in Legs when Walking/Leg Cramps: Yes Respiratory Chronic Cough: No HX of Shortness of Breath: No Hoarseness: No Hx Chronic Obstructive Pulmonary Disease (COPD): No Hx Asthma: No Hx Emphysema: No Hx Sleep Apnea: No Hx Respiratory Tract Infection/Cold (presently): Yes Do You Snore Loudly (louder than talking or can be heard): No Do You Often Feel Tired/ Fatigued/ Sleepy Dring Daytime?: No Has Anyone Observed You Stop Breathing During Sleep?: No Result (for STOP score): Negative Hx Smoking: Yes (quit 05/2006) Smoking Status: Former smoker Gastrointestinal Hx Gastroesophageal Reflux: No Controlled With Meds: Yes (peptobismol) Hx Gastrointestinal Disorders: No Hx Gastrointestinal Bleed: No Hx Ulcer: No Hx Hiatal Hernia: No Difficulty Chewing/Swallowing: No Special diet followed at home: Yes (heart healthy) Hx Unplanned Weight Loss of 20#: No HX Unplanned Weight Gain of 20#: No Neurological Hx Seizures: No HX Syncope/Blackout Spells/Unconsciousness: No Hx Transient Ischemic Attacks (TIA): No Hx Multiple Sclerosis: No Hx Parkinson's Disease: No Hx Head/Neck Injury: No Hx Headaches: No Hx Back Injury/Pain: No Recent Onset of Speech Difficulty: No Restless Legs: No Does patient have nerve stimulator: No Blood Disorder Hx Leukemia: No Bleeding Tendencies: No Hx Deep Vein Thrombosis: No Hx High Cholesterol: No Blood Transmitted Disease: No Hx Hepatitis: No Hx Cirrhosis: No Hx Anemia: No Hx Blood Disorders: No Reproduction : No Hx Hysterectomy: No Genitourinary Hx Renal Disease: No Musculoskeletal Hx Arthritis: No Hx Rheumatoid Arthritis: No Hx Gout: No Recent Onset of an Orthopedic Problem: No Endocrine Hx Diabetes: No Thyroid Disease: No Hx Steroid Therapy: No Psycho/Social Hx Substance Use: No Hx Alcohol Use: Yes (couple times per year) Hx Anxiety: No Hx Depression: No Mental Illness: No Hx Dementia: No Miscellaneous Hx Cancer: Yes (dysplasia of cervix) Recent Exposure to Contagious Disease: No Hx of C-Diff: No Any Loose Teeth: No Allergies No Known Allergies Allergy (Verified 02/22/22 11:24) Discharge Is Pt Admitted From a Longterm, or a Retirement: No Who Could Help: After D/C, Where Do you Plan to Go: Return Home Vital Signs Vital Signs Vital Signs: 02/26/22 06:50 02/26/22 06:52 Temperature 97.6 F L Temperature Source Temporal Pulse Rate 95 Respiratory Rate 18 Respiratory Pattern Normal Blood Pressure 101/77 Blood Pressure Mean 85 Blood Pressure Source Monitor Blood Pressure Position Semi-Fowlers Blood Pressure Location Left Arm Pulse Ox 94 Oxygen Delivery Method Room Air Weight Weight: 317 lb 7.45 oz Body Mass Index (BMI) 48.2 Physical Exam Const alert, oriented x3 and no apparent distress HEENT normocephalic and head/scalp atraumatic Resp normal respiratory effort Cardio regular rate GI soft to palpation and non-tender; Negative for non-distended Inspection: central obesity Palpation: Negative for guarding Extremity General Extremity: Negative for clubbing or cyanosis Neuro CN's II-XII intact bilaterally Psych mental status grossly normal Assessment & Plan Assessment/Plan (1) Screening for colon cancer: Surgery Risks - Colonoscopy Risks Include but are not Limited To: Risks include but are not limited to: Bleeding, perforation requiring further surgery, inability to complete colonoscopy requiring barium enema.
--- NOTE | 2022-02-26 07:30 | COLBX_PTH ---
PATIENT: AVTAR GRAY LOC: EN U#:[id number] AGE/SX: 47/F ROOM: RE02/26/[address]: Dr. Stephanie Morrison MD : 1975 BED: DIS: 02/26/2022 SPEC #: [id number] RECD: 02/26/22 11:42 STATUS: SHYLA REJoselyn #: [id number] JEFF: 02/26/22 07:[address]: Stephanie Morrison DEPT: SURGICAL PATHOLOGY RECD BY: Kristin Theodore ENTERED: 02/26/22 12:10 SP TYPE: COLON BX OTHR DR: Dr. Alfonso Ventura, DO Tissues: A - COLON BIOPSY B - Sigmoid colon biopsy Procedures: Surgery Specimen Level IV HEADER OPERATION: Colonoscopy with biopsy (MAC) PRE-OP DIAGNOSIS: Screening for colon cancer TISSUE SUBMITTED: A ? Hepatic flexure polyp and biopsy, B ? Sigmoid colon polyps (at 30 cm) MICROSCOPIC DIAGNOSIS A. Colonic polyp at hepatic flexure, biopsy: Polypoid fragment of benign colonic mucosa. See comment. B. Sigmoid colon polyps at 30 cm, biopsy: Polypoid fragment of benign colonic mucosa. See comment. AM:angelita 02/27/2022 COMMENT A & B. Neither hyperplastic nor adenomatous change is seen. Clinical correlation is suggested. MICROSCOPIC DESCRIPTION Slides are reviewed. GROSS DESCRIPTION A - Received in fixative is one container labeled with the patient's name and designated hepatic flexure polyp. The specimen consists of multiple irregular fragments of light lopes soft tissue that in aggregate measure 0.3 x 0.3 x 0.1 cm. The specimen is totally submitted in one cassette. B - Received in fixative is one container labeled with the patient's name and designated sigmoid colon polyps. The specimen consists of two irregular fragments of light lopes soft tissue that in aggregate measure 0.6 x 0.5 x 0.1 cm. The specimen is totally submitted in one cassette. / AM:angelita 02/26/2022 TC:5 [facility]: [id number] x2
[2022-02-26 08:02] VITALS: BP 101/77; BP 99/63; PULSE 70; RESP 16; TEMP 36.4; O2SAT 96
[2022-02-26 08:06] VITALS: BP 101/77; BP 87/64; PULSE 68; RESP 16; O2SAT 95
[2022-02-26 08:11] VITALS: BP 101/77; BP 82/64; PULSE 67; RESP 16; O2SAT 96
[2022-02-26 08:16] VITALS: BP 101/77; BP 86/63; PULSE 64; RESP 16; TEMP 36.2; O2SAT 96
--- NOTE | 2022-02-26 08:16 | OP.COLON_ITS ---
Patient Name: Freda Urias Procedure Date: 02/26/2022 7:08 AM Date of : 1975 Age: 47 Procedure: Colonoscopy Indications: Screening for colorectal malignant neoplasm Providers: Stephanie Morrison MD Referring MD: Alfonso Ventura Medicines: Monitored Anesthesia Care Patient Profile: This is a 47 year old female. Last Colonoscopy: none. The patient's first colonoscopy is today. Complications: No immediate complications. Procedure: Pre-Anesthesia Assessment: - Prior to the procedure, a History and Physical was performed, and patient medications and allergies were reviewed. The patient's tolerance of previous anesthesia was also reviewed. The risks and benefits of the procedure and the sedation options and risks were discussed with the patient. All questions were answered, and informed consent was obtained. Prior Anticoagulants: The patient has taken no previous anticoagulant or antiplatelet agents. ASA Grade Assessment: Per anesthesia. After reviewing the risks and benefits, the patient was deemed in satisfactory condition to undergo the procedure. After I obtained informed consent, the scope was passed under direct vision. Throughout the procedure, the patient's blood pressure, pulse, and oxygen saturations were monitored continuously. The Colonoscope was introduced through the anus and advanced to the cecum, identified by appendiceal orifice and ileocecal valve. The colonoscopy was performed without difficulty. The patient tolerated the procedure well. The quality of the bowel preparation was good. Scope In: 7:31:57 AM Scope Withdrawal Time 0 hours 14 minutes 46 seconds Scope Out: 7:57:35 AM Total Procedure Duration Time 0 hours 25 minutes 38 seconds Findings: Hemorrhoids were found on perianal exam. Internal hemorrhoids were found. The hemorrhoids were Grade I (internal hemorrhoids that do not prolapse). A few small-mouthed diverticula were found in the sigmoid colon, descending colon and transverse colon. Many sessile polyps were found in the sigmoid colon and hepatic flexure. The polyps were 2 to 4 mm in size. These polyps were removed with a cold biopsy forceps. There were too many small polyps to remove especially in sigmoid at 30 cm-see picture, sample taken. The exam was otherwise without abnormality. Impression: - Hemorrhoids found on perianal exam. - Internal hemorrhoids. - Diverticulosis in the sigmoid colon, in the descending colon and in the transverse colon. - Many 2 to 4 mm polyps in the sigmoid colon and at the hepatic flexure, removed with a cold biopsy forceps. - The examination was otherwise normal. - No specimens collected. Recommendation: - Discharge patient to home. - Resume previous diet. - Continue present medications. - Await pathology results. - Repeat colonoscopy for surveillance based on pathology results. Procedure Code(s): --- Professional --- G0121, PT, Colorectal cancer screening; colonoscopy on individual not meeting criteria for high risk Diagnosis Code(s): --- Professional --- Z12.11, Encounter for screening for malignant neoplasm of colon K64.0, First degree hemorrhoids D12.5, Benign neoplasm of sigmoid colon D12.3, Benign neoplasm of transverse colon (hepatic flexure or splenic flexure) K57.30, Diverticulosis of large intestine without perforation or abscess without bleeding CPT copyright 2017 [employer]. All rights reserved. The codes documented in this report are preliminary and upon installer interior assemblies review may be revised to meet current compliance requirements. MD Stephanie Martinez MD 02/26/2022 8:16:10 AM This report has been signed electronically. Number of Addenda: 0 Note Initiated On: 02/26/2022 7:08 AM
--- NOTE | 2022-02-26 08:17 | OP.CCLET_ITS ---
02/26/2022 Alfonso Ventura [address] [place] [address] Re : Colonoscopy procedure for Freda Urias Dear Dr. Ventura This procedure was performed on Saturday, February 26, 2022. My impressions and recommendations are as follows: Impressions : - Hemorrhoids found on perianal exam. - Internal hemorrhoids. - Diverticulosis in the sigmoid colon, in the descending colon and in the transverse colon. - Many 2 to 4 mm polyps in the sigmoid colon and at the hepatic flexure, removed with a cold biopsy forceps. - The examination was otherwise normal. - No specimens collected. Recommendations : - Discharge patient to home. - Resume previous diet. - Continue present medications. - Await pathology results. - Repeat colonoscopy for surveillance based on pathology results. My findings are described in the full procedure note, which is enclosed. If I can be of further assistance, please feel free to contact me at Doctor phone number(s): , Work: . Sincerely, MD Stephanie Martinez MD 02/26/2022 8:16:10 AM This report has been signed electronically.
[2022-02-26 08:45] VITALS: BP 101/77
== END 2022-02-26 08:50 | disposition home or self-care (01) ==
LOC: EN 06:14 → AC 06:15
PROVIDERS: PCP Family Medicine; Referring Provider Family Medicine; Visit Provider Surgery
PROC: 0DJD8ZZ Inspection of Lower Intestinal Tract, Via Natural or Artificial Opening Endoscopic (ICD-10-PCS; CPT 45378; principal; 2022-02-26 07:25)
DX: Z12.11 Encounter for screening for malignant neoplasm of colon (principal); I48.91 Unspecified atrial fibrillation; K57.30 Diverticulosis of large intestine without perforation or abscess without bleeding; K64.0 First degree hemorrhoids; Z87.891 Personal history of nicotine dependence; I10 Essential (primary) hypertension; E78.00 Pure hypercholesterolemia, unspecified; D12.5 Benign neoplasm of sigmoid colon; D12.3 Benign neoplasm of transverse colon; Z79.01 Long term (current) use of anticoagulants; Z86.14 Personal history of Methicillin resistant Staphylococcus aureus infection
CPT/HCPCS: 45380; 87426; 88305; C9803; J7120; J2405

== ENCOUNTER → 2022-06-09 | Outpatient (CLI) | payer OTHER, SELFPAY ==
[2021-06-30 13:51] VITALS: BMI 44.1
[2022-06-09 09:57] LABS: Basophil% 0.6 % (0-1); Eosinophils% 2.3 % (0-5); Hematocrit 42.5 % (37-47); Hemoglobin 14.5 g/dL (12.0-15.0); Lymphocyte % 31.2 % (19-41); Mean Corp Hgb Conc 34.1 g/dL (32-36); Mean Platelet Vol. 10.4 fl (6.2-12.0); Monocyte% 5.4 % (0-10); Neutrophil # 4.78 X10^3/uL (2.7-7.7); Neutrophil % 60.4 % (47-70); Platelet Count 249 K/mm3 (150-450); RBC Distribution Width CV 13.6 % (11.6-14.6); RBC Distribution Width SD 43.8 fl (35.1-43.9); Red Blood Count 4.83 M/mm3 (4.2-5.4); White Blood Count 7.9 K/mm3 (4.4-11.0)
[2022-06-09 09:58] LABS: Absolute Lymphocyte Count 2.47 X10^3/uL (0.83-4.51); Absolute Neutrophil Count 4.8 X10^3/uL (2.0-7.7); Basophil# 0.05 X10^3/uL; Eosinophil# 0.18 X10^3/uL; Lymphocyte # 2.47 X10^3/ul (0.83-4.51); Monocyte# 0.43 X10^3/uL; NRBC Flagged by Analyzer 0 % (0-5)
[2022-06-09 10:25] LABS: ALB/GLOB Ratio 0.9 RATIO (0.9-2.4); AST(SGOT) 19 U/L (15-37); Alanine Aminotransfer ALT/SGPT 27 U/L (13-56); Albumin, Serum 3.3 g/dL (3.2-5.0); Alkaline Phosphatase 79 U/L (45-117); Anion Gap 7 (5-15); BUN 19 mg/dL (7-18); BUN/Creat Ratio 20.4 RATIO (10-20); Calcium,Total 8.9 mg/dL (8.5-10.1); Chloride 110 mmol/L (98-107); Cholesterol 131 mg/dL (200); Creatinine, Serum 0.93 mg/dL (0.55-1.02); EST Glomerular Filtration Rate 69 mL/min (>60); Est Glom Filt Rate - Afr Amer 83 mL/min (>60); Globulin 3.6 g/dL (2.2-4.2); Glucose 114 mg/dL (74-106); High Density Lipoprotein 37 mg/dL; Protein, Total 6.9 g/dL (6.4-8.2); Sodium Level 142 mmol/L (136-145); Thyroid Stim Hormone (TSH) 1.62 uIU/mL (0.358-3.74); Triglycerides 116 mg/dL; Very Low Density Lipoprotein 23 mg/dL (5-40)
== END | disposition home or self-care (01) ==
PROVIDERS: PCP Family Medicine; Visit Provider Family Medicine
DX: Z00.00 Encounter for general adult medical examination without abnormal findings (principal); I10 Essential (primary) hypertension; R53.83 Other fatigue
CPT/HCPCS: 36415; 80053; 80061; 84439; 84443; 85025

== ENCOUNTER → 2022-06-25 | Outpatient (CLI) | payer OTHER, SELFPAY ==
[2021-06-30 13:51] VITALS: BMI 44.1
== END | disposition home or self-care (01) ==
LOC: BFHLAB 09:40
PROVIDERS: PCP Family Medicine; Visit Provider Family Medicine
DX: R73.01 Impaired fasting glucose (principal)
CPT/HCPCS: 36415; 83036

== ENCOUNTER 2022-08-15 18:00 | Outpatient (RCR) | payer OTHER, SELFPAY ==
[2021-06-30 13:51] VITALS: BMI 44.1
--- NOTE | 2022-05-08 13:37 | HP.PTEVAL_ITS ---
Patient's Visit Information AVTAR GRAY is a 47 year old F referred to Physical Therapy by Dr. Alfonso Ventura DO with a diagnosis of dizziness, lack of coordination, sequalae of CVA. Date of Evaluation: 05/04/22 Physical Therapist: Galindo Potter DPT - Visit Plan Frequency: 2x /Week Duration: 6 Weeks Plan: Start with B hip abd core strengthening in aquatic setting - Subjective Pt. is here today for her initial evaluation with diagnosis of dizziness, lack of coordination, sequalae of CVA. Pt. arrives with spouse who does most of the history due to patient having issues remembering all that happened. Pt. 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 She was at rehabilitation center for another few weeks after this as well. Pt. is doing better, she is back to work and able to do light activities, but reports being not close to how she was before the injuries. She was able to walk 3-4 miles prior, but is only able to tolerate up to 1 mile at a slower pace. Also at work she was able to negotiate stairs well multiple times per day, but is now limited to ~2 times and struggles with heavy fatigue after wards. 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 Pt. is still having a lot of fatigue and reports gaining ~100 pounds since her injury. Pt. is hopeful to improve her strength in order to get back to all work and recreational activities with less fatigue and better toelrance. - Objective POSTURE: Pt. has general flexed posture. Pt. has marked thoracic kyphosis. Slight sway back posture. PALPATION: Pt. has no pain with palpation of BLEs. No marked edema noted. NEURO: Pt. has normal sensation in BLEs. Pt. is able to rise on heels and toes without issues. Pt. has normal DTR of BLEs. ROM: Pt. has normal ROM in BLEs. Pt. has min loss in lumbar ROM, but no pain. Pt. has tight bilateral HS as well. Normal knee and hip ROM noted. MMT: Pt. has normal ankle and knee strength. Pt. does have some weakness in her hips bilaterally 4/5 throughout. Core strength- poor. GAIT: Pt. has fairly normal gait pattern, but does tend to ambulate with a sway back posture with increased lateral postural sway noted. No increase in pain noted. - Balance/Special Test Scores Lower Extremity Functional Score: 36 TUG Test Time Seconds: 11.3 30 Second Chair Rise Test Seconds: 12 6 Minute Walk Test: 1009 with out AD. Fatigue noted with walking. - Goals Goal 1:: LTG: PT. to be I with HEP including progressive walking program. Goal 2:: LTG: Pt. to be able to ambulate at least 1300' with 6 MWT with minimal fatigue. Goal Time Frame: 4-6 Weeks Goal 3:: LTG: Pt. to be able to negotiate 2 flights of stairs with 1 HR with minimal fatigue allowing her to complete this task at work multiple times per day. Goal Time Frame: 4-6 Weeks Goal 4:: LTG: Pt. to have full 5/5 strength of BLEs and core. Goal Time Frame: 4-6 Weeks - Rehabilitation Potential Physical Therapy Diagnosis: Pt. has signs and symptoms consistent with dizziness, lack of coordination, sequalae of CVA. Pt. has a general weakness and fatigue. Pt. had some balance issues, but not overall bad. I do think as she becomes stronger and more active her balance will improve. pt. would benefit from PT to work on the above limitations progressing back to all recreational and work activities without limitations. Rehabilitation Potential: Good - Anticipated Interventions Patient/Client Instruction: Educate patient on: Condition, Plan of Care, Risk Factors, Benefits of Fitness Program For the Purpose of:: To improve decision making, To facilitate caregiver knowledge, To improve self management, To prevent re-injury, To improve ability to perform tasks related to life management, To improve tolerance to ADL's Therapeutic Exercise to Include: Strength training, Power training, Endurance training, Balance training, Agility training, Body mechanics, Flexibilty t raining, In an aquatic setting, Dynamic Lumbar Stabilization, Scapular Strength/Stabilization For the Purpose of:: To increase ROM, To improve nutrient delivery to tissue, To improve muscle performance and motor function, To improve performance and independence with ADL's, To decrease level of supervision to perform tasks, To improve ability of physical actions for home/community/work/leisure, To improve gait and locomotor functions, To improve health of tissue, To decrease soft tissue restriction Thank you for the opportunity to evaluate your patient. For Medicare and Medicare HMO plans, please review the plan of care and approve it. It will need to be FAXED BACK to us at [phone] for Medicare purposes. For Medicare only, by signing this I certify the plan of care. Please let me know if there are questions or concerns regarding this plan of care. Physician Signature: Date:__
--- NOTE | 2022-06-13 08:51 | HP.PTREVAL ---
Dr. Alfonso Ventura, DO, It has been my pleasure to treat AVTAR GRAY over the last 10 visits for dizziness, lack of coordination, sequalae of CVA. Please see the progress note below for an update on the physical therapy plan of care! Subjective: Pt. is here today for her recheck with PT. Pt. reports overall doing much better. Pt. reports no much pain, but still fatigues quicker than she would like. She is back to working more, but did take today off due to overall fatigue. She reports negotiating stairs more at work and being able to walk more with in evenings. Objective/Function: ROM: LUMBAR SPINE: flexion min loss NE, ext min loss NE, SB min loss bilat NE, rotation min loss bilat NE. Pt. has improved HS length, but still ~65 deg in 90/90 positioning bilaterally. MMT: RLE: ankle 5/5 throughout; knee: ext 5-/5, flexion 4+/5; hip: flexion 4/5, abd 4/5, ext 4/5. LLE: ankle 5/5 throughout; knee: ext 5-/5, flexion 5-/5; hip: flexion 4+/5, abd 4/5, ext 4+/5. Core strength: poor. gait: Pt. has better gait pattern, no LOB noted. Slight fwrd flexed posture. 6 MWT: 1245' with out AD, fatigue noted, but no dyspnea, HR 113 after testing. stairs: pt. able to complete 2 flights with HR with some mild fatigue after returning. She reports she is up to negotiating a couple times per day. I talked to her and her spouse about increasing walking program at home. The consent. Pt. consents to progression to land Pt with focus on endurance, BLE/core strengthening. Add in higher level balance as well. Plan Plan: Patient at this point in time is appropriate to transition to land PT with focus on LE strengthening, endurance and higher level balance activities. Balance/Gait/Functional tests - Balance/Special Test Scores Lower Extremity Functional Score: 36 TUG Test Time Seconds: 11.3 Tug Test: <20 sec.=mostly independent 30 Second Chair Rise Test Seconds: 12 6 Minute Walk Test: 1245 no AD. Goals Goal 1:: LTG: PT. to be I with HEP including progressive walking program. Goal Progress: Progressing Goal 2:: LTG: Pt. to be able to ambulate at least 1300' with 6 MWT with minimal fatigue. Goal Time Frame: 4-6 Weeks Goal 3:: LTG: Pt. to be able to negotiate 2 flights of stairs with 1 HR with minimal fatigue allowing her to complete this task at work multiple times per day. Goal Time Frame: 4-6 Weeks Goal Progress: Progressing Goal 4:: LTG: Pt. to have full 5/5 strength of BLEs and core. Goal Time Frame: 4-6 Weeks Goal Progress: Progressing Anticipated Interventions Patient/Client Instruction: Educate patient on: Condition, Plan of Care, Risk Factors, Benefits of Fitness Program For the Purpose of:: To improve decision making, To facilitate caregiver knowledge, To improve self management, To prevent re-injury, To improve ability to perform tasks related to life management, To improve tolerance to ADL's Therapeutic Exercise to Include: Strength training, Power training, Endurance training, Balance training, Agility training, Body mechanics, Flexibilty training, In an aquatic setting, Dynamic Lumbar Stabilization, Scapular Strength/Stabilization For the Purpose of:: To increase ROM, To improve nutrient delivery to tissue, To improve muscle performance and motor function, To improve performance and independence with ADL's, To decrease level of supervision to perform tasks, To improve ability of physical actions for home/community/work/leisure, To improve gait and locomotor functions, To improve health of tissue, To decrease soft tissue restriction Please do not hesitate to contact me at [phone] by phone or if you have questions or concerns regarding this new plan of care! Sincerely, Galindo Potter DPT
--- NOTE | 2022-07-11 16:23 | HP.PTREVAL ---
Dr. Alfonso Ventura, DO, It has been my pleasure to treat AVTAR GRAY over the last 18 visits for dizziness, lack of coordination, sequalae of CVA. Please see the progress note below for an update on the physical therapy plan of care! Subjective: Pt. reports overall doing well. She reports noticing improvements with balance and endurance. Pt. reports still having difficulty with walking up inclines. Objective/Function: 6 MWT: 1408feet with 12 on dyspnea scale. HR 133bpm post 6MWT. FGA 27/30- difficulty with narrow JUS and with eyes closed. 5/5 strength throughout BLEs. Core stength fair. I would like her to progress with gym exercises and progress cardio, ie Tmill and on incline. Keep track on both RPE and with HR. Plan Plan: Pt. wants to be able to walk on inclines with less difficulty, and be I with gym HEP. Monitor HR and REP. Balance/Gait/Functional tests - Balance/Special Test Scores Lower Extremity Functional Score: 36 TUG Test Time Seconds: 11.3 Tug Test: <20 sec.=mostly independent 30 Second Chair Rise Test Seconds: 12 6 Minute Walk Test: 1245 no AD. Goals Goal 1:: LTG: PT. to be I with HEP including progressive walking program. Goal Progress: Progressing Goal 2:: LTG: Pt. to be able to ambulate at least 1300' with 6 MWT with minimal fatigue. Goal Time Frame: 4-6 Weeks Goal Progress: Goal Met Goal 3:: LTG: Pt. to be able to negotiate 2 flights of stairs with 1 HR with minimal fatigue allowing her to complete this task at work multiple times per day. Goal Time Frame: 4-6 Weeks Goal Progress: Goal Met Goal 4:: LTG: Pt. to have full 5/5 strength of BLEs and core. Goal Time Frame: 4-6 Weeks Goal Progress: Progressing Goal 5:: LTG: pt. to be able to tolerate 5% incline for 5 minutes without much issue allowing for increased toelrance to walking outside home. Goal Progress: Progressing Anticipated Interventions Patient/Client Instruction: Educate patient on: Condition, Plan of Care, Risk Factors, Benefits of Fitness Program For the Purpose of:: To improve decision making, To facilitate caregiver knowledge, To improve self management, To prevent re-injury, To improve ability to perform tasks related to life management, To improve tolerance to ADL's Therapeutic Exercise to Include: Strength training, Power training, Endurance training, Balance training, Agility training, Body mechanics, Flexibilty training, In an aquatic setting, Dynamic Lumbar Stabilization, Scapular Strength/Stabilization For the Purpose of:: To increase ROM, To improve nutrient delivery to tissue, To improve muscle performance and motor function, To improve performance and independence with ADL's, To decrease level of supervision to perform tasks, To improve ability of physical actions for home/community/work/leisure, To improve gait and locomotor functions, To improve health of tissue, To decrease soft tissue restriction Please do not hesitate to contact me at [phone] by phone or if you have questions or concerns regarding this new plan of care! Sincerely, MISSY TempletonT
== END 2022-08-15 19:00 | disposition home or self-care (01) ==
LOC: PT 18:00
PROVIDERS: PCP Family Medicine; Referring Provider Family Medicine; Visit Provider Family Medicine
DX: R42 Dizziness and giddiness (principal); R27.8 Other lack of coordination; I69.30 Unspecified sequelae of cerebral infarction
CPT/HCPCS: 97110; 97113; 97161; 97164

== ENCOUNTER → 2023-01-01 | Outpatient (CLI) | payer OTHER, SELFPAY ==
[2021-06-30 13:51] VITALS: BMI 44.1
[2023-01-01 12:40] LABS: Hemoglobin A1c 5.7 % (3.8-5.6)
== END | disposition home or self-care (01) ==
LOC: BFHLAB 10:22
PROVIDERS: PCP Family Medicine; Referring Provider Family Medicine; Visit Provider Family Medicine
DX: R73.01 Impaired fasting glucose (principal)
CPT/HCPCS: 36415; 83036

== ENCOUNTER → 2024-04-30 | Outpatient (CLI) | payer OTHER, SELFPAY ==
[2021-06-30 13:51] VITALS: BMI 44.1
--- NOTE | 2024-04-30 08:17 | BI_ITS ---
MAMMOGRAPHY - BILATERAL SCREENING REASON FOR EXAM: Female, 49 years old. Routine annual screening examination. PERTINENT HISTORY: Non-contributory. History of prior bilateral breast reduction surgery. TECHNIQUE: Digital bilateral breast bettie (3D mammographic acquisition) in the CC and MLO projections. 2-D mediolateral oblique (MLO) and craniocaudad (CC) views of both breasts were obtained. CAD: Full Field Digital Mammography with Computer Added Detection was performed. COMPARISON: Comparison is made with prior study dated September 22, 2019. FINDINGS: Breast Composition: There are scattered areas of fibroglandular density. There are no dominant masses or suspicious calcifications. Stable small bilateral axillary lymph nodes. No other significant abnormalities are identified. There has been no significant change since the prior study. BI/SCRN MAMM (CAD)W/BETTIE BILAT IMPRESSION: Stable bilateral screening mammogram. Yearly follow-up mammogram recommended. (A) ASSESSMENT CATEGORY: BIRADS Category 2: Benign. A letter regarding these results will be sent to the patient by the facility within 30 days. Approximately 10% of breast cancers are not detected by mammography. A normal mammogram should not delay biopsy of a clinically suspicious abnormality. [id number] Electronically Signed: Peewee Sibley MD at 9:29 EST ,
== END | disposition home or self-care (01) ==
PROVIDERS: PCP Family Medicine; Referring Provider Family Medicine; Visit Provider Family Medicine
DX: Z12.31 Encounter for screening mammogram for malignant neoplasm of breast (principal)
CPT/HCPCS: 77063; 77067

== ENCOUNTER → 2025-01-07 | Outpatient (CLI) | payer OTHER, SELFPAY ==
[2021-06-30 13:51] VITALS: BMI 44.1
[2025-01-07 15:47] LABS: AST(SGOT) 25 U/L (<=31); Alanine Aminotransfer ALT/SGPT 32 U/L (<=34); Albumin, Serum 4.0 g/dL (3.5-5.0); Alkaline Phosphatase 87 U/L (35-104); Anion Gap 14 (5-15); BUN 20 mg/dL (4-19); BUN/Creat Ratio 20.9 RATIO (10-20); Calcium,Total 9.9 mg/dL (7.6-11.0); Carbon Dioxide 22.0 mmol/L (21.0-32.0); Chloride 102 mmol/L (98-108); Cholesterol 153 mg/dL (<=200); Globulin 3.1 g/dL (2.2-4.2); Glucose 91 mg/dL (70-99); Low Density Lipoprotein Calc. 92 mg/dL; Potassium 4.0 mmol/L (3.3-5.1); Triglycerides 140 mg/dL; Very Low Density Lipoprotein 28 mg/dL (5-40); cholesterol:hdl ratio screen 4.64
[2025-01-07 16:05] LABS: Hematocrit 44.0 % (37-47); Hemoglobin 14.9 g/dL (12.0-15.0); Immature Granulocytes Count 0.040 X10^3/uL (0.0-0.0); Mean Corp Hgb Conc 33.9 g/dL (32-36); Mean Corpuscular Volume 86.1 fL (81-99); Mean Platelet Vol. 10.4 fl (6.2-12.0); NRBC Flagged by Analyzer 0 % (0-5); Platelet Count 290 K/mm3 (150-450); RBC Distribution Width CV 14.0 % (11.6-14.6); RBC Distribution Width SD 44.2 fl (35.1-43.9); Red Blood Count 5.11 M/mm3 (4.2-5.4); White Blood Count 7.0 K/mm3 (4.4-11.0)
== END | disposition home or self-care (01) ==
LOC: BFHLAB 11:13
PROVIDERS: PCP Family Medicine; Visit Provider Family Medicine
DX: Z00.00 Encounter for general adult medical examination without abnormal findings (principal); E28.2 Polycystic ovarian syndrome
CPT/HCPCS: 36415; 80053; 80061; 83036; 84443; 85025